=== PATIENT | male | born 1950 | race Caucasian/White ===

== ENCOUNTER → 2016-09-06 13:30 | Outpatient (CLI) | payer MEDICARE | END | disposition home or self-care (01) | LOC: D.MRI 13:30 | DX: M54.16 Radiculopathy, lumbar region (principal); M25.552 Pain in left hip ==

== ENCOUNTER 2017-02-20 10:30 | Inpatient (IN) | payer MEDICARE ==
[2017-02-20 11:24] LABS: HEMOGLOBIN 12.1 g/dL (13.5-17.5); MCH 30.1 pg (26.0-34.0); MCHC 34.6 g/dL (31.0-37.0); MCV 87.1 fL (80.0-100.0); MEAN PLATELET VOLUME 11.8 fL (7.4-10.4); PLATELET COUNT 301 10x3/uL (130-400); RBC 4.02 10x6/uL (4.20-6.10); WBC 23.5 10x3/uL (4.8-10.8)
[2017-02-20 11:40] LABS: ALBUMIN 3.3 g/dL (3.4-5.0); ANION GAP 20.6 mmol/L (8-16); BILIRUBIN - TOTAL 0.45 mg/dL (0.2-1.3); CALCIUM 9.2 mg/dL (8.5-10.1); CARBON DIOXIDE 17.5 mmol/L (21.0-32.0); POTASSIUM - SERUM 3.1 mmol/L (3.5-5.1); PROTEIN - SERUM 6.9 g/dL (6.4-8.2)
[2017-02-20 12:37] LABS: ANISOCYTOSIS OCC; LYMPHOCYTES 5 % (15-50); MONOCYTES 8 % (2-11); NEUTROPHILS 78 % (40-80); PLATELET ESTIMATE NORMAL
[2017-02-20 13:26] LABS: MAGNESIUM - SERUM 2.2 mg/dL (1.8-2.4)
[2017-02-20] MEDS ORDERED: PAXIL40 MG PO (17:19)
[2017-02-20] MEDS ORDERED: FLOMAX0.4 MG PO (17:20)
[2017-02-20] MEDS ORDERED: AVODART0.5 MG PO (17:20)
[2017-02-20] MEDS ORDERED: DIOVAN HCT 160/1 TA1 PO (17:21)
[2017-02-20] MEDS ORDERED: PRINIVIL10 MG PO (17:21)
[2017-02-20] MEDS ORDERED: MOBIC7.5 MG PO (17:21)
[2017-02-20] MEDS ORDERED: LIPITOR10 MG PO (17:22)
[2017-02-20 18:13] VITALS: BP 138/94; BMI 19.9
--- NOTE | 2017-02-20 18:39 | NUR ---
2500mL NS BOLUS COMPLETE PER CORE MEASURES. ADMISSION DATA OBTAIN FROM OLD RECORDS AND FROM LYDIA (PATIENT MOTHER). BED LOCKED AND LOW. CALL LIGHT IN REACH. TWO SIDERAILS UP. BED ALARM ON. RECIEVES LOVENOX INJ.
[2017-02-20 19:13] VITALS: BP 144/98
--- NOTE | 2017-02-20 20:00 | NUR ---
RECEIVED REPORT, WILL ASSUME CARE OF PT, PT SLEEPING, BED IS LOW, SRX2, CALL LIGHT IN REACH, WILL CONTINUE PLAN OF CARE
[2017-02-21] VITALS: BP 132/87
--- NOTE | 2017-02-21 04:03 | NUR ---
ASSESSMENT COMPLETE, SEE FLOWSHEET, PT SLEEPING, BED IS LOW, SRX2, CALL LIGHT IN REACH, WILL CONTINUE PLAN OF CARE
--- NOTE | 2017-02-21 04:26 | NUR ---
COFFEE WEIGHER AT BEDSIDE TO OBTAIN VITALS, CALL LIGHT IN REACH. WILL CONTINUE WITH PLAN OF CARE.
[2017-02-21 04:28] VITALS: BP 153/95
[2017-02-21 05:20] LABS: BASOPHILS 0 % (0-2); EOSINOPHILS 0 % (0-7); HEMATOCRIT 29.6 % (42.0-54.0); HEMOGLOBIN 10.2 g/dL (13.5-17.5); IMMATURE GRANULOCYTES 0.4 % (0-5); LYMPHOCYTES 4.2 % (15-50); MCHC 34.5 g/dL (31.0-37.0); MCV 87.1 fL (80.0-100.0); MEAN PLATELET VOLUME 11.8 fL (7.4-10.4); NEUTROPHILS 89.4 % (40-80); PLATELET COUNT 267 10x3/uL (130-400); RDW 14.8 % (11.5-14.5); WBC 24.3 10x3/uL (4.8-10.8)
[2017-02-21 05:32] LABS: BILIRUBIN - TOTAL 0.4 mg/dL (0.2-1.3); CALCIUM 8.8 mg/dL (8.5-10.1); CREATININE - SERUM 1.7 mg/dL (0.6-1.3); POTASSIUM - SERUM 3.1 mmol/L (3.5-5.1); PROTEIN - SERUM 6.1 g/dL (6.4-8.2)
[2017-02-21 05:35] LABS: ANION GAP 12.9 mmol/L (8-16); CARBON DIOXIDE 22.2 mmol/L (21.0-32.0)
[2017-02-21 07:58] VITALS: BP 160/94
[2017-02-21 09:41] VITALS: BMI 27.7
[2017-02-21 11:16] VITALS: BP 158/98
[2017-02-21 12:39] LABS: % SATURATION 4 % (15-55); IRON 14 ug/dl (35-150); TOTAL IRON BIND CAPACITY 283 ug/dl (260-445); UNSAT IRON BIND CAPACITY 269 ug/dl (150-375)
--- NOTE | 2017-02-21 14:52 | NUR ---
WOUND CARE CONSULT; NOTED BLANCHABLE REDNESS TO BOTTOM. PLAN: TURN/REPOSITION Q 2 HOURS CALMOSEPTINE CREAM TO PROTECT SKIN WOUND CARE WILL CONTINUE MONITORING.
[2017-02-21 15:41] VITALS: BP 173/101
--- NOTE | 2017-02-21 16:11 | NUR ---
ALERT AND ORIENTED X4. RESTING IN BED. 0 URINE OUT PUT. BLADDER SCAN SHOWS 647mL OF URINE. BP-171/101. REPORT BLOOD PRESSURE AND RETENTION TO . ELDRIDGE PLACEMENT ORDERED. SINUS TACH 117bpm ON TELEMETRY. BED LOCKED AND LOW. CALL LIGHT IN REACH. TWO SIDERAILS UP. BED ALARM ON.
--- NOTE | 2017-02-21 16:36 | NUR ---
ELDRIDGE PLACED 18FR. 9mL SALINE INFLATE BULB. URINE CLEAR YELLOW. UA COLLECTED AND TAKEN TO LAB. UNABLE TO COLLECT STOOL. NO BOWEL MOVEMENT. LABEL PLACED ON ELDRIDGE BAG AND ON CHART. CONTINUE PLAN OF CARE AND SAFETY PRECAUTIONS.
[2017-02-21 17:48] LABS: APPEARANCE CLEAR (CLEAR); BILIRUBIN NEGATIVE (NEGATIVE); COLOR YELLOW (YELLOW); GLUCOSE NEGATIVE (NEGATIVE); KETONE NEGATIVE (NEGATIVE); NITRITE NEGATIVE (NEGATIVE); PROTEIN TRACE mg/dL (NEGATIVE); UROBILINOGEN NORMAL (NORMAL)
--- NOTE | 2017-02-21 18:03 | NUR ---
TAKEN TO MRI VIA STRETCHER. CONTINUE PLAN OF CARE AND SAFETY PRECAUTIONS.
[2017-02-21 19:00] VITALS: BP 159/96
--- NOTE | 2017-02-21 19:20 | NUR ---
RECEIVED REPORT, WILL ASSUME CARE OF PT, PT DENIES ANY NEEDS, SCD ARE ON, BED IS LOW, SRX2, CALL LIGHT IN REACH, WILL CONTINUE PLAN OF CARE
--- NOTE | 2017-02-21 19:40 | NUR ---
MIRROR DEPARTMENT SUPERVISOR NOTIFIED BP 159/96, WILL MONITOR AND FOLLOW ORDER
--- NOTE | 2017-02-21 21:53 | NUR ---
COVERSTITCH BINDER RECHECK BP-159/91, WILL CONTINUE TO MONITOR
[2017-02-22] VITALS: BP 143/95
--- NOTE | 2017-02-22 01:27 | NUR ---
PT LYING IN BED, AWAKE, ALERT, I ASKED HOW PT HE WAS DOING AND IF HE NEEDED ANYTHING. PT DENIED ANY NEEDS AND STATED HE WAS OK. CONTINUE TO MONITOR. BED LOW, CALL LIGHT IN REACH, SIDE RAILS X 2, HOB 20 DEGREES.
--- NOTE | 2017-02-22 02:44 | NUR ---
ASSESSMENT COMPLETE, SEE FLOWSHEET, PT LAYING ON L.SIDE, TRIED TO TURN HIM, HE REFUSED AT THIS TIME, BED IS LOW, SRX2, CALL LIGHT IN REACH, SCD ARE ON, WILL CONTINUE PLAN OF CARE
[2017-02-22 04:00] VITALS: BP 179/91
[2017-02-22 05:41] LABS: BASOPHILS 0 % (0-2); EOSINOPHILS 0.1 % (0-7); HEMATOCRIT 25.5 % (42.0-54.0); HEMOGLOBIN 8.6 g/dL (13.5-17.5); IMMATURE GRANULOCYTES 0.4 % (0-5); MCHC 33.7 g/dL (31.0-37.0); MCV 88.9 fL (80.0-100.0); MEAN PLATELET VOLUME 11.4 fL (7.4-10.4); MONOCYTES 6.3 % (2-11); NEUTROPHILS 88.2 % (40-80); RBC 2.87 10x6/uL (4.20-6.10); RDW 15.2 % (11.5-14.5)
[2017-02-22 05:49] LABS: PLATELET COUNT 191 10x3/uL (130-400); WBC 14.7 10x3/uL (4.8-10.8)
[2017-02-22 06:38] LABS: ALBUMIN 2.5 g/dL (3.4-5.0); ANION GAP 17.4 mmol/L (8-16); BILIRUBIN - TOTAL 0.27 mg/dL (0.2-1.3); CALCIUM 8.5 mg/dL (8.5-10.1); CARBON DIOXIDE 18.9 mmol/L (21.0-32.0); CREATININE - SERUM 1.3 mg/dL (0.6-1.3); POTASSIUM - SERUM 3.3 mmol/L (3.5-5.1); PROTEIN - SERUM 5.8 g/dL (6.4-8.2)
[2017-02-22 07:51] VITALS: BP 187/94
[2017-02-22 15:32] VITALS: BP 186/104
--- NOTE | 2017-02-22 16:29 | NUR ---
Rehab Prescreening Consult recieved and the chart has been reviewed. Based on notes it is difficult to tell what the patient's prior level of function and cognition was prior to admit. Rehab will visit with the patient and or family to determine this, in order to know whether he meets criteria for the IRF. Thank you for the referral. Nighat Valverde RN Clinical Liaison, Rehab
--- NOTE | 2017-02-22 16:56 | NUR ---
Patient Name: ELIZABETH HOLLY Admission Status: ER Accout number: [id number] Admission Date: 02-20-2017 : 1950 Admission Diagnosis:WEAKNESS Attending: AARON MOSCOSO Current LOS: 2 Anticipated DC Date: 02-23-2017 Planned Disposition: Inpatient Rehab Primary Insurance: MEDICARE A & B PLANNED EXTERNAL PROVIDER: [facility] INPATIENT [facility]AB Discharge Planning Comments: * Is the patient Alert and Oriented? Yes 0 * How many steps to enter\exit or inside your home? 4 0 * PCP DR. TURNER 0 * [facility] [address] [facility] * Preadmission Environment Home with Family 0 * ADLs Independent 0 * Equipment None 0 * Other Equipment NO MEDICAL EQUIPMENT PROVIDER PREFERNCE 0 * List name and contact numbers for known caregivers / representatives who currently or will assist patient after discharge: LYDIA HOLLY, MOTHER, 0 * Community resources currently utilized None 0 * Please name any agencies selected above. NONE 0 * Additional services required to return to the preadmission environment? Yes * Can the patient safely return to the preadmission environment? Yes 0 * Has this patient been hospitalized within the prior 30 days at any hospital? No 0 CM RECEIVED INPATIENT REHAB PRESCREENING ORDER, MET WITH PT IN ROOM TO DISCUSS DISCHARGE PLANNING AND NEEDS. PT REPORTS LIVING AT HOME INDEPENDENTLY WITH HIS MOTHER. PT HAS NO MEDICAL EQUIPMENT AND NO OUTSIDE SERVICES ASSISTING IN THE HOME. CM DISCUSSED AVAILABILITY OF HOME HEALTH, REHAB SERVICES AND MEDICAL EQUIPMENT WELL REHAB PROVIDERS AND LOCATIONS. PT WOULD LIKE TO GO TO REHAB AT [place] IF ACCEPTED. CM WAITING INPATIENT REHAB PRESCREENING RESULT / DETERMINATION FROM [facility] INPATIENT [facility]. Structural Architect: Francisco Avendaño
--- NOTE | 2017-02-22 17:43 | NUR ---
RESTING IN BED. ALERT AND ORIENTED TO PERSON AND PLACE. WATCHING PEOPLE PASS BY ROOM. SINUS TACH 120bpm ON TELEMETRY. ATE 75% OF DINER. ELDRIDGE DRAINING BY GRAVITY SECURED TO RIGHT INNER THIGH. BED GERARDO AND LOW. CALL LIGHT IN REACH. TWO SIDERAILS UP. BED ALARM ON.
--- NOTE | 2017-02-22 19:21 | NUR ---
PT IS SITTING UP IN BED AT A 45 DEGREE ANGLE, BED IN LOW POSITION, CALL LIGHT IN REACH, NO SIGNS OF DISTRESS. CONTINE WITH CARE PLAN
[2017-02-22 20:00] VITALS: BP 144/93
--- NOTE | 2017-02-23 02:07 | NUR ---
CALL LIGHT IN REACH, WILL CONTINUE WITH PLAN OF CARE.
[2017-02-23 04:00] VITALS: BP 151/103
--- NOTE | 2017-02-23 04:14 | NUR ---
PT LYING ON BACK, EVEN RISE AND FALL OF CHEST, NO SIGNS OF DISTRESS. BED IN LOW POSITION, CALL LIGHT IN REACH
[2017-02-23 04:24] LABS: BASOPHILS 0.1 % (0-2); EOSINOPHILS 0.2 % (0-7); HEMATOCRIT 24.9 % (42.0-54.0); HEMOGLOBIN 8.4 g/dL (13.5-17.5); IMMATURE GRANULOCYTES 0.7 % (0-5); MCH 30.1 pg (26.0-34.0); MCHC 33.7 g/dL (31.0-37.0); MCV 89.2 fL (80.0-100.0); MEAN PLATELET VOLUME 11.1 fL (7.4-10.4); MONOCYTES 6.3 % (2-11); NEUTROPHILS 87.7 % (40-80); PLATELET COUNT 199 10x3/uL (130-400); RBC 2.79 10x6/uL (4.20-6.10); RDW 15.4 % (11.5-14.5); WBC 12.3 10x3/uL (4.8-10.8)
[2017-02-23 04:48] LABS: ALBUMIN 2.6 g/dL (3.4-5.0); ALKALINE PHOSPHATASE 66 U/L (46-116); ALT (SGPT) 13 U/L (10-68); CALC OSMOLALITY 295 mosm/kg (275-300); CALCIUM 8.5 mg/dL (8.5-10.1); CARBON DIOXIDE 19.8 mmol/L (21.0-32.0); CHLORIDE - SERUM 113 mmol/L (98-107); GLUCOSE 140 mg/dL (74-106); POTASSIUM - SERUM 3.2 mmol/L (3.5-5.1); PROTEIN - SERUM 6.1 g/dL (6.4-8.2); SODIUM 145 mmol/L (136-145); eGFR NON AFRICAN AMERICAN 80 mL/min (90-120)
[2017-02-23 04:50] LABS: UREA NITROGEN 26 mg/dL (7-18)
--- NOTE | 2017-02-23 05:10 | NUR ---
PT K+ 3.2 STARTED ON POTASSIUM RIDER, 1ST BAG HUNG AND INFUSING
--- NOTE | 2017-02-23 07:15 | NUR ---
RECIEVED REPORT ON PATIENT, PATIENT IS ALERT AT THIS TIME. PATIENT IS ST ON MONITOR WITH A RATE OF 114. PATIENT ON 2L/MIN VIA NC OF OXYGEN WITH NAD NOTED AT THIS TIME. PATIENT HAS A L AC IV WITH NS INFUSING AT 100ML/HR. PATIENT DENIES ANY NEEDS AT THIS TIME. BED IS LOW AND LOCKED AT THIS TIME. CPOC
[2017-02-23 08:00] VITALS: BP 187/113
[2017-02-23 09:16] LABS: FOLATE (FOLIC ACID) - SERUM 4.7 ng/mL (>3.0)
--- NOTE | 2017-02-23 09:30 | NUR ---
PATIENT WORKING WITH PT, DENIES ANY NEEDS. CPOC
--- NOTE | 2017-02-23 10:17 | NUR ---
PATIENT RESTING, AROUSES TO VOICE, DENIES ANY NEEDS. CPOC
[2017-02-23 12:00] VITALS: BP 203/121
--- NOTE | 2017-02-23 12:30 | NUR ---
SHIPPING INSPECTOR AT BEDSIDE FEEDING PATIENT LUNCH. PATIENT DENIES ANY NEEDS. CPOC
--- NOTE | 2017-02-23 13:01 | NUR ---
Nutrition Follow Up: Pt was asleep at the time of RD visit. Interview deferred. Pt is eating 54% meal avg on an AHA diet. Noted per chart pt requires assistance with meals. No BM since admit. Wt gain noted. Meds and labs reviewed. Rec continue current diet. RD following.
--- NOTE | 2017-02-23 14:00 | NUR ---
PT PUT PATIENT IN CHAIR, PATIENT TOLERATING AT THIS TIME. CPOC
--- NOTE | 2017-02-23 14:05 | NUR ---
REHAB PRESCREENING Rehab continues to follow Mr. Groves. He is currently only doing sit to stand with physical therapy. His vital signs are also noted to have BP documented at 187/113 at 08:00 and 203/121 at 12:00. Case Nahum Avendaño was notified of these concerns. Rehab will continue to follow for progress and stable vitals. Thank you for this referral! Rula Moore, SPOT WELDER BODY ASSEMBLY Rehab Play Reader
--- NOTE | 2017-02-23 15:07 | NUR ---
PATIENT K CAME BACK AT 3.4. ELECTROLYTE PROTOCOL FOLLOWED. CPOC
--- NOTE | 2017-02-23 15:37 | NUR ---
PATIENT BP 184/101, SPOKE WITH DR MOSCOSO AND SHE ORDERED TO CHANGE HYDRALIZINE TO Q4HPRN. WILL GIVE. CPOC
[2017-02-23 16:00] VITALS: BP 184/101
--- NOTE | 2017-02-23 17:45 | NUR ---
PATIENT EATING DINNER, DENIES ANY NEEDS OR PAIN. BED IS LOW AND LOCKED. CALL LIGHT IN REACH. CPOC
--- NOTE | 2017-02-23 17:56 | NUR ---
PATIENT HAS NOT HAD A STOOL TODAY, NO STOOL COLLECTED, STILL NEEDS SAMPLE. WILL PASS ON IN REPORT. CPOC
[2017-02-23 19:00] VITALS: BP 199/106
--- NOTE | 2017-02-24 01:11 | NUR ---
PT SITTING UP WITH HOB AT 45 DEGREE ANGLE. PT IS RESTING. EVEN AND UNLABORED RESPIRATIONS NOTED.
--- NOTE | 2017-02-24 03:40 | NUR ---
CALL LIGHT IN REACH, WILL CONTINUE WITH PLAN OF CARE.
[2017-02-24 04:00] VITALS: BP 194/114
[2017-02-24 05:46] LABS: BASOPHILS 0.1 % (0-2); EOSINOPHILS 0.4 % (0-7); HEMATOCRIT 25.5 % (42.0-54.0); HEMOGLOBIN 8.5 g/dL (13.5-17.5); IMMATURE GRANULOCYTES 2.5 % (0-5); LYMPHOCYTES 6.6 % (15-50); MCH 29.7 pg (26.0-34.0); MCHC 33.3 g/dL (31.0-37.0); MCV 89.2 fL (80.0-100.0); MEAN PLATELET VOLUME 11.6 fL (7.4-10.4); MONOCYTES 6.5 % (2-11); NEUTROPHILS 83.9 % (40-80); PLATELET COUNT 220 10x3/uL (130-400); RBC 2.86 10x6/uL (4.20-6.10); RDW 15.4 % (11.5-14.5); WBC 13.5 10x3/uL (4.8-10.8)
[2017-02-24 06:20] LABS: ALBUMIN 2.8 g/dL (3.4-5.0); ALKALINE PHOSPHATASE 71 U/L (46-116); CALC OSMOLALITY 290 mosm/kg (275-300); CALCIUM 8.6 mg/dL (8.5-10.1); CARBON DIOXIDE 20.8 mmol/L (21.0-32.0); CHLORIDE - SERUM 113 mmol/L (98-107); GLUCOSE 129 mg/dL (74-106); POTASSIUM - SERUM 3.2 mmol/L (3.5-5.1); SODIUM 143 mmol/L (136-145); UREA NITROGEN 23 mg/dL (7-18); eGFR NON AFRICAN AMERICAN 80 mL/min (90-120)
[2017-02-24 06:21] LABS: ALT (SGPT) 17 U/L (10-68)
--- NOTE | 2017-02-24 07:27 | NUR ---
RECIEVED REPORT ON PATIENT, PATIENT IS ALERT AT THIS TIME. PATIENT IS A MOUTH BREATHER, NAD NOTED AT THIS TIME. PATIENT IS ST ON MONITOR WITH A RATE OF 119. PATIENT HAS A L AC IV WITH NS INFUSING AT 100ML/HR. ELDRIDGE CATHETER INTACT, DRAINING BY GRAVITY. PATIENT DENIES ANY NEEDS. WILL CONT TO MONITOR PATIENT. BED LOW AND LOCKED. CALL LIGHT IN REACH. CPOC
[2017-02-24 08:00] VITALS: BP 193/113
--- NOTE | 2017-02-24 08:45 | NUR ---
MORNING MEDS GIVEN, ASSESSMENT DONE. PATIENT DENIES ANY NEEDS OR PAIN. ST ON MONITOR RATE OF 199. WILL CONT TO MONITOR. CPOC
--- NOTE | 2017-02-24 10:45 | NUR ---
PATIENT IN CHAIR PER PT. PATIENT TOLERATING. DENIES ANY NEEDS OR PAIN. CPOC
[2017-02-24 11:20] LABS: CALC OSMOLALITY 293 mosm/kg (275-300); CALCIUM 9.2 mg/dL (8.5-10.1); CARBON DIOXIDE 18.9 mmol/L (21.0-32.0); CHLORIDE - SERUM 113 mmol/L (98-107); GLUCOSE 157 mg/dL (74-106); SODIUM 144 mmol/L (136-145); UREA NITROGEN 24 mg/dL (7-18); eGFR NON AFRICAN AMERICAN 80 mL/min (90-120)
[2017-02-24 11:24] LABS: POTASSIUM - SERUM 3.7 mmol/L (3.5-5.1)
[2017-02-24 12:00] VITALS: BP 165/91
--- NOTE | 2017-02-24 13:00 | NUR ---
PATIENT REQUESTING TO GET BACK IN BED, PAGED PT. CPOC
--- NOTE | 2017-02-24 13:09 | EC ---
PATIENT:ELIZABETH HOLLY DATE OF SERVICE: 02/20/17 SEX: M MEDICAL RECORD: [id number] DATE OF : [birth year] LOCATION:D.M2 D.210 AGE OF PATIENT: 67 ADMISSION DATE: 02/20/17 REFERRING PHYSICIAN: INTERPRETING PHYSICIAN: PASCUAL COONEY MD ECHOCARDIOGRAM REPORT ECHO CHARGES 5 ECHO LIMITED CLINICAL DIAGNOSIS: L MCA LACUNE ASSESS FOR CLOTS ECHOCARDIOGRAPHIC MEASUREMENTS (adult normal given) AC root (d.<3.7cm) cm LV Septum d (<1.2 cm> cm Valve Excursion cm LV Septum (systole) cm Left Atria (s.<4.0cm> 3.4 cm LVPW d(<1.2cm) cm RV (d.<2.3cm) 2.9 cm LVPW (sytole) cm LV diastole(<5.6CM) 3.6 cm MV E-F(>70mm/sec) cm LV systole 2.2 cm LVOT Diameter 1.7 cm MV exc.(>10mm) cm Est.ejection fraction (50-75%) % Pericardial Effusion N DOPPLER: LVIT cm/sec A 140 cm/sec E 108 cm/sec LA cm/sec RVSP 29 mmHg LVOT 134 cm/sec AOP1/2T m/s Asc. Ao 172 cm/sec RVOT cm/sec RA cm/sec PA cm/sec AV Gradient Peak 11.89mmHg AV Mean 6.03 mmHg AV Area 1.8 cm MV Gradient Peak 7.45 mmHg MV Mean 3.50 mmHg MV Area cm COMMENTS: Business Center Manager: Raciel JALLOH Companion Caregiver: 2 Dr. Correa TAPE# PACS DATE OF SERVICE: 02/23/2017 FINDINGS: 1. Left ventricle chamber size is within normal limits. Left ventricular systolic function is normal. Overall ejection fraction estimated at 55%. 2. Left atrium, right atrium, and right ventricular chamber sizes are within normal limits. 3. Valvular structures have normal structure and motion. 4. Doppler interrogation only reveals mild tricuspid regurgitation. No other valvular insufficiency or stenosis. ECHOCARDIOGRAM REPORT [id number] ELIZABETH HOLLY 5. No evidence of pericardial effusion or left ventricular thrombus. TRANSINT:[id number] Voice Confirmation ID: [id number] DOCUMENT ID: [id number] PASCUAL COONEY MD at 1309 CC: [id number] DICTATION DATE: 02/23/17 1158 METALLURGICAL SPECIALIST: 02/23/17 1256 ADM IN [facility] [address] [id number]
--- NOTE | 2017-02-24 13:10 | NUR ---
PATIENT BACK IN BED PER PT. DENIES ANY NEEDS. CPOC
--- NOTE | 2017-02-24 14:33 | NUR ---
Rehab Note- Spoke with Ms Groves, the patient's mother, that he lives and discussed his PLOF and current status and she is interested in him coming to [facility] Acute Rehab when medically stable. Will follow at this time as the patient continues to be hypertensive. Thank you for this referral! Fanny Wang RN Clinical Liaison, [facility] Rehab
[2017-02-24 15:39] VITALS: BP 173/103
[2017-02-24 15:56] VITALS: BP 178/98
--- NOTE | 2017-02-24 15:59 | NUR ---
HYDRALZINE 10MG GIVEN IV FOR BP 178/98. WILL CONT TO MONITOR. CPOC
--- NOTE | 2017-02-24 17:00 | NUR ---
WHEN PATIENT WAS EATING DINNER, PATIENT HAD A COUGHING EPISODE WHEN SWALLOWING, VS STABLE O2 SAT 96%. PATIENT STATED IT WAS HARD TO SWALLOW. WILL ORDER A SWALLOW EVAL. CPOC
--- NOTE | 2017-02-24 18:31 | NUR ---
PATIENT RESTING, AROUSES TO VOICE. PATIENT DENIES ANY PAIN OR NEEDS. CPOC
[2017-02-24 19:00] VITALS: BP 156/92
--- NOTE | 2017-02-24 19:33 | NUR ---
PT IN BED WATCHING TELEVISION. DENIES NEEDS AT THIS TIME.
[2017-02-25] VITALS: BP 154/106
--- NOTE | 2017-02-25 01:46 | NUR ---
PT IN BED. WILL CONTINUE WITH CARE PLAN. BED IN LOW POSITION. CALL LIGHT WITHIN REACH. DENIES ANY NEEDS AT THIS TIME.
[2017-02-25 04:00] VITALS: BP 153/102
[2017-02-25 05:26] LABS: BASOPHILS 0.2 % (0-2); EOSINOPHILS 0.4 % (0-7); HEMATOCRIT 27.9 % (42.0-54.0); HEMOGLOBIN 9.3 g/dL (13.5-17.5); IMMATURE GRANULOCYTES 3.4 % (0-5); LYMPHOCYTES 6.8 % (15-50); MCH 29.7 pg (26.0-34.0); MCHC 33.3 g/dL (31.0-37.0); MCV 89.1 fL (80.0-100.0); MEAN PLATELET VOLUME 10.9 fL (7.4-10.4); MONOCYTES 7.7 % (2-11); NEUTROPHILS 81.5 % (40-80); PLATELET COUNT 243 10x3/uL (130-400); RBC 3.13 10x6/uL (4.20-6.10); RDW 15.6 % (11.5-14.5); WBC 16.4 10x3/uL (4.8-10.8)
[2017-02-25 05:41] LABS: ALBUMIN 2.6 g/dL (3.4-5.0); ANION GAP 14.5 mmol/L (8-16); BILIRUBIN - TOTAL 0.88 mg/dL (0.2-1.3); CALCIUM 8.7 mg/dL (8.5-10.1); CARBON DIOXIDE 23.4 mmol/L (21.0-32.0); CREATININE - SERUM 1.1 mg/dL (0.6-1.3); PROTEIN - SERUM 6.4 g/dL (6.4-8.2)
[2017-02-25 05:45] LABS: POTASSIUM - SERUM 2.9 mmol/L (3.5-5.1)
--- NOTE | 2017-02-25 07:15 | NUR ---
RECIEVED REPORT ON PATIENT, PATIENT IS RESTING WITH EYES CLOSED AT THIS TIME. PATIENT HAS A L AC IV WITH NS INFUSING AT 5ML/HR. NAD NOTED AT THIS TIME. BED IS LOW AND LOCKED AT THIS TIME. CALL LIGHT IN REACH. CPOC
[2017-02-25 08:00] VITALS: BP 145/48
--- NOTE | 2017-02-25 08:30 | NUR ---
PATIENT TO CHAIR PER PT. PATIENT TOLERATING. PATIENT DENIES ANY NEEDS. CPOC
--- NOTE | 2017-02-25 09:15 | NUR ---
MORNING MEDICATION GIVEN, NO ISSUES. ASSESSMENT DONE. DENIES FURTHER NEEDS. CPOC
[2017-02-25 12:00] VITALS: BP 123/72
--- NOTE | 2017-02-25 13:05 | NUR ---
PT PUTTING PATIENT BACK TO BED. CPOC
[2017-02-25 14:33] LABS: ANION GAP 13.7 mmol/L (8-16); CALCIUM 9.2 mg/dL (8.5-10.1); CARBON DIOXIDE 21.8 mmol/L (21.0-32.0)
[2017-02-25 14:35] LABS: CREATININE - SERUM 1.4 mg/dL (0.6-1.3); POTASSIUM - SERUM 3.5 mmol/L (3.5-5.1)
--- NOTE | 2017-02-25 15:13 | NUR ---
PATIENT K 3.5 ELCTROLYTE PROTOCOL FOLLOWED. CPOC
[2017-02-25 16:39] VITALS: BP 136/90
[2017-02-25 19:19] LABS: ANION GAP 14.6 mmol/L (8-16); CALCIUM 9.3 mg/dL (8.5-10.1); CREATININE - SERUM 1.3 mg/dL (0.6-1.3); POTASSIUM - SERUM 3.6 mmol/L (3.5-5.1)
[2017-02-25 20:00] VITALS: BP 154/86
--- NOTE | 2017-02-25 23:58 | NUR ---
PT RESTING WELL WITHOUT C/O OR DISTRESS NOTED. FEW NEEDS VOICED. CALL LIGHT WITHIN REACH.
[2017-02-26 05:11] LABS: ANION GAP 14.9 mmol/L (8-16); CARBON DIOXIDE 23.8 mmol/L (21.0-32.0); CREATININE - SERUM 1.1 mg/dL (0.6-1.3); POTASSIUM - SERUM 3.7 mmol/L (3.5-5.1)
[2017-02-26 05:13] LABS: BASOPHILS 0.1 % (0-2); EOSINOPHILS 0.7 % (0-7); HEMATOCRIT 28.5 % (42.0-54.0); HEMOGLOBIN 9.1 g/dL (13.5-17.5); IMMATURE GRANULOCYTES 2.9 % (0-5); LYMPHOCYTES 5.9 % (15-50); MCH 29.4 pg (26.0-34.0); MCHC 31.9 g/dL (31.0-37.0); MEAN PLATELET VOLUME 11.3 fL (7.4-10.4); MONOCYTES 7.4 % (2-11); PLATELET COUNT 250 10x3/uL (130-400); RBC 3.09 10x6/uL (4.20-6.10); RDW 16.4 % (11.5-14.5); WBC 16.5 10x3/uL (4.8-10.8)
[2017-02-26 05:15] LABS: MCV 92.2 fL (80.0-100.0)
--- NOTE | 2017-02-26 08:15 | NUR ---
PT UP IN BEDSIDE CHAIR WITH ASSIST FROM PHYSICAL THERAPY PT EATING BREAKFAST VOICES NO COMPLAINTS CALL LIGHT IN REACH WILL MONITER
[2017-02-26 09:09] VITALS: BP 156/96
--- NOTE | 2017-02-26 10:00 | NUR ---
PT ASSISTED BACK TO BED PER PHYSICAL THERAPY CALL LIGHT IN REACH WILL MONITER
[2017-02-26 12:42] VITALS: BP 155/99
--- NOTE | 2017-02-26 14:41 | NUR ---
PT IS AWAKE AND IN BED AT THIS TIME. BED AT LOWEST POSITION. CALL MCCONNELL IN USE. SIDE RAILS UP X2. NO NEEDS AT THIS TIME. WILL CONTINUE TO MONITOR
--- NOTE | 2017-02-26 14:55 | NUR ---
PT HAD LARGE FORMED INCONTINENT BM PT CLEANED AND DRYED AND SPECIMEN COLLECTED SHARON CRUZN SAID TO NOT GIVE THE DULCULOX SUPPOSITORY THAT WAS ORDERED WILL MONITER CALL LIGHT IN REACH
[2017-02-26 16:39] VITALS: BP 140/84
--- NOTE | 2017-02-26 17:00 | NUR ---
PT ASSISTED WITH EATING TOLERATED WELL ATE 25 PERCENT
[2017-02-26 19:00] VITALS: BP 155/80
--- NOTE | 2017-02-26 19:38 | NUR ---
PT RESTING IN BED. ASKS TO BE PUT ON BSC. X2 ASSIST. PT FLACCID ON RIGHT SIDE, PT HAS NS IFUSING TO THE LEFT AC @ 5. PT WILL CALL WHEN FINISHED. PT HAS NO S/S OF DISTRESS. WILL CPOC
--- NOTE | 2017-02-26 21:51 | NUR ---
PT A MOUTH BREATHER. PT GOT UPSET WHEN I ASKED HIS NAME AND . PT RESTING IN BED. RESPIRTATIONS EVEN AND UNLABORED. WILL CPOC
[2017-02-27] VITALS: BP 169/91; BP 181/105
--- NOTE | 2017-02-27 02:43 | NUR ---
PT ASLEEP. RESPIRTAIONS EVEN AND UNLABORED. PT SLEEPING WITH MOUTH OPEN. PT HAS NO S/S OF DISTRESS. BED LOW AND CALL LIGHT IN REACH. WILL CPOC
--- NOTE | 2017-02-27 04:16 | NUR ---
REPOSITIONED PT. PT RESTING, DENIES ANY NEEDS. NO S/S OF DISTRESS.WILL CPOC
[2017-02-27 04:37] LABS: BASOPHILS 0.2 % (0-2); EOSINOPHILS 1.5 % (0-7); HEMATOCRIT 30.2 % (42.0-54.0); HEMOGLOBIN 9.7 g/dL (13.5-17.5); IMMATURE GRANULOCYTES 3.2 % (0-5); LYMPHOCYTES 6.6 % (15-50); MCH 29.6 pg (26.0-34.0); MCHC 32.1 g/dL (31.0-37.0); MCV 92.1 fL (80.0-100.0); MEAN PLATELET VOLUME 10.8 fL (7.4-10.4); MONOCYTES 9.5 % (2-11); PLATELET COUNT 263 10x3/uL (130-400); RBC 3.28 10x6/uL (4.20-6.10); RDW 16.8 % (11.5-14.5); WBC 16.9 10x3/uL (4.8-10.8)
[2017-02-27 04:52] LABS: ANION GAP 12.6 mmol/L (8-16); CARBON DIOXIDE 26.5 mmol/L (21.0-32.0); CREATININE - SERUM 1.1 mg/dL (0.6-1.3)
[2017-02-27 04:54] LABS: POTASSIUM - SERUM 3.1 mmol/L (3.5-5.1)
--- NOTE | 2017-02-27 07:20 | NUR ---
REPORT RECEIVED. PT RESTING QUIELTY, ORIENTED TO PERSON ONLY. RR EVEN AND UNLABORED. PT IS MOUTH BREATHING. PT DENIES FURTHER NEEDS AT THIS TIME, WILL CTM.
[2017-02-27 08:00] VITALS: BP 153/102
--- NOTE | 2017-02-27 09:40 | NUR ---
FAMILY MEMBER CALLED REGARDING PT CONDITION. GAVE UPDATE TO FAMILY MEMBER AND SHE GAVE SUGGESTIONS REGARDING PT NOT EATING VERY MUCH. SAID THAT "HE LIKES BANANAS." PUT IN A DIET MESSAGE REGARDING REQUESTS. SPOKE TO FAMILY MEMBER FOR ABOUT 10 MINUTES.
[2017-02-27 12:00] VITALS: BP 104/74; BP 130/74
--- NOTE | 2017-02-27 13:26 | NUR ---
Nutrition Follow Up: Pt was asleep at the time of RD visit. Interview deferred. Pt is eating 29% meal avg on an AHA diet. Wt loss noted. +BM 02/27/17. Labs reviewed. Meds noted including Lasix. Rec changing diet to regular to encourage po intake. Rec consider an appetite stimulant. Will send Ensure with meals. RD following.
[2017-02-27 16:00] VITALS: BP 130/74
--- NOTE | 2017-02-27 18:23 | NUR ---
PT RESTING QUIETLY, RR EVEN AND UNLABORED. ASSISTED PT TO BEDPAN X2 ASSIST. PT WILL CALL WHEN READY TO GET OFF BED SALCIDO. WILL GIVE REPORT ON PT CONDITION FOR THE DAY.
--- NOTE | 2017-02-27 18:35 | NUR ---
ASSISTED PT OFF BED PAIN, SMALL AMT STOOL PASSED. PROVIDED ELDRIDGE CARE AND BETHANIE CARE, BETHANIE PAD CHANGED. WILL GIVE REPORT ON PT CONDITION FOR THE DAY.
--- NOTE | 2017-02-27 19:45 | NUR ---
PT IN BED RESTING QUIETLY. DENIES ANY PAIN OR NEEDS AT THIS TIME. BED IN LOW POSITION, CALL LIGHT WITHIN REACH.
[2017-02-27 20:45] VITALS: BP 131/76
[2017-02-28 00:37] VITALS: BP 138/81
[2017-02-28 04:25] LABS: BASOPHILS 0.3 % (0-2); EOSINOPHILS 1.6 % (0-7); HEMATOCRIT 31.4 % (42.0-54.0); HEMOGLOBIN 10.1 g/dL (13.5-17.5); IMMATURE GRANULOCYTES 4.3 % (0-5); LYMPHOCYTES 10.9 % (15-50); MCH 29.8 pg (26.0-34.0); MCHC 32.2 g/dL (31.0-37.0); MCV 92.6 fL (80.0-100.0); MEAN PLATELET VOLUME 11.2 fL (7.4-10.4); MONOCYTES 7.6 % (2-11); NEUTROPHILS 75.3 % (40-80); PLATELET COUNT 283 10x3/uL (130-400); RBC 3.39 10x6/uL (4.20-6.10); RDW 16.9 % (11.5-14.5)
[2017-02-28 04:38] VITALS: BP 135/75
[2017-02-28 04:45] LABS: ANION GAP 13.1 mmol/L (8-16); CALCIUM 9.1 mg/dL (8.5-10.1); CARBON DIOXIDE 27.1 mmol/L (21.0-32.0); CREATININE - SERUM 1.2 mg/dL (0.6-1.3); MAGNESIUM - SERUM 2.5 mg/dL (1.8-2.4); PHOSPHOROUS 4.1 mg/dL (2.5-4.9); POTASSIUM - SERUM 3.2 mmol/L (3.5-5.1)
--- NOTE | 2017-02-28 05:24 | NUR ---
PT POTASSIUM 3.2. FOLLOWED ELECTROLYTE PROTOCOL AND GAVE 40 mEQ OF PO POTASSIUM. DENIES ANY OTHER NEEDS AT THIS TIME. BED IN LOW POSITION, CALL LIGHT WITHIN REACH.
--- NOTE | 2017-02-28 07:00 | NUR ---
REPORT RECEIVED FROM OFF GOING NURSE. SEE ASSESSMENT FLOW SHEET FOR MORE DETAILS. PT SLOW TO RESPOND TO QUESTIONS AND TO COMMUNICATE. ALLOWED EXTRA TIME FOR PT TO CONCERN NEEDS AND THOUGHTS. IV TO LEFT AC PATENT. C/D/I. NO REDDNESS/EDEMA OR C/O PAIN. FC PATENT WITH CLEAR YELLOW URINE NOTED. BREATHING NORMAL AND UNLABORED. CALL LIGHT IN REACH. WILL CONT POC
[2017-02-28 07:38] VITALS: BP 142/88
--- NOTE | 2017-02-28 10:00 | NUR ---
PHYSICAL THERAPY ASSISTED PT TO BEDSIDE CHAIR. SITTING UPRIGHT WATCHING TV. 0 S/SX OF DISTRESS/DISCOMFORT NOTED. CALL LIGHT IN REACH. WILL CONT POC
[2017-02-28 11:47] VITALS: BP 106/59
--- NOTE | 2017-02-28 14:26 | NUR ---
UA COLLECTED AND FC REMOVED PER ORDRES.
[2017-02-28 14:46] LABS: APPEARANCE CLEAR (CLEAR); COLOR YELLOW (YELLOW); SPECIFIC GRAVITY 1.015 (1.005-1.020)
[2017-02-28 14:47] LABS: BILIRUBIN NEGATIVE (NEGATIVE); GLUCOSE NEGATIVE (NEGATIVE); KETONE NEGATIVE (NEGATIVE); NITRITE NEGATIVE (NEGATIVE); PROTEIN NEGATIVE (NEGATIVE); UROBILINOGEN NORMAL (NORMAL)
[2017-02-28 14:48] LABS: BACTERIA MODERATE /hpf (NONE SEEN)
[2017-02-28] MEDS ORDERED: IPRAT-ALBUT 0.5-3 ML INH (15:08)
[2017-02-28] MEDS ORDERED: NORVASC5 MG PO (15:08)
[2017-02-28] MEDS ORDERED: PEPCID20 MG PO (15:09)
[2017-02-28] MEDS ORDERED: HCTZ25 MG PO (15:09)
[2017-02-28] MEDS ORDERED: CEFTRIAXONE1 G/VIAL IM (15:16)
[2017-02-28] MEDS ORDERED: LEVAQUIN500 MG PO (15:16)
--- NOTE | 2017-02-28 15:46 | NUR ---
Patient Name: ELIZABETH HOLLY Encounter No: [id number] : 1950 Primary Insurance: MEDICARE A & B Anticipated DC Date: 02-23-2017 Planned Disposition: Inpatient Rehab External Planned Provider: [facility] INPATIENT REHAB DCP follow-up note: CM SPOKE TO ELISE OF INPATIENT REHAB, THEY PLAN TO ACCEPT PT TODAY, FOR REHAB. PT NOTIFIED, IN AGREEMENT WITH DISCHARGE TO INPATIENT REHAB. IMPORTANT MESSAGE FROM MEDICARE PROVIDED AND EXPLAINED. CM CALLED AND SPOKE TO PT'S MOTHER AT HOME WHO IS IN AGREEMENT AND ASKED FOR PRIVATE ROOM AND FOR REHAB TO CALL HER TODAY. CM NOTIFIED ELISE IN REHAB. [facility] INPATIENT REHAB TO CONTACT MED 2 NURSE WITH ROOM NUMBER WHEN READY TO ACCEPT PT AND NURSE REPORT. Francisco Avendaño, CASE MANAGEMENT
[2017-02-28 16:24] VITALS: BP 101/53
--- NOTE | 2017-02-28 17:09 | NUR ---
REPORT CALLED INTO CAMILA IN REHAB. PT AWARE OF DC TO REHAB ORDERS. IV DC WITH CATHETER TIP INTACT. PT BREATHING NORMAL AND UNLABORED. 0 S/SX OF DISTRESS/DISCOMFORT NTOED. TRANSFERED TO [facility]IA BED NOW UNDER THE CARE OF CAMILA.
--- NOTE | 2017-03-06 11:43 | CN ---
PATIENT NAME:ELIZABETH HOLLY MEDICAL RECORD: [id number] : 54 LOCATION:D. D.2102 ADMIT DATE: 02/20/17 ACCOUNT: [id number] CONSULTING PHYSICIAN: SALMA WHITE MD REFERRING PHYSICIAN: TRINITY MOSCOSO MD DATE OF CONSULTATION: 02/21/2017 Pulmonary Consultation CONSULT REQUESTING PHYSICIAN: Trinity Moscoso MD REASON FOR CONSULTATION: Pneumonia, right lower lobe. HISTORY OF PRESENT ILLNESS: Mr. Holly is a 67-year-old gentleman who was admitted yesterday with left-sided weakness. 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 On evaluation, it was found that he has possible infiltrate right lower lobe as well as right pleural effusion. He has no significant leukocytosis. The patient is very poorly communicative. The history was taken mainly by reviewing the patient's note and talking to Dr. Moscoso. REVIEW OF SYSTEMS: Mainly in the history of present illness. PAST MEDICAL HISTORY: 1. Hypertension. 2. Hyperlipidemia. 3. Gastroesophageal reflux disease. 4. History of cerebral palsy. 5. History of cerebrovascular accident. 6. Hyperlipidemia. ALLERGIES: No known drug allergy. MEDICATIONS: He is on Levaquin IV, his albuterol/ipratropium nebulizer, Lovenox. His other medication is reviewed. PERSONAL AND SOCIAL HISTORY: The patient is a nonsmoker, nondrinker. FAMILY HISTORY: Noncontributory. PHYSICAL EXAMINATION: GENERAL: Now, the patient is lying comfortably in bed. He is not in acute distress. VITAL SIGNS: The blood pressure is 158 to 173/101, respirations 24, temperature is 98.4, SpO2 is 92% on room air, pulse is 125. HEENT: Conjunctivae are pink. Sclerae nonicteric. NECK: Supple. No JVD. CHEST: There are crackles at the right base. No wheezing. HEART: Rhythm regular, normal sound, no murmur. ABDOMEN: Soft. Bowel sounds present. No hepatosplenomegaly. RECTAL: Deferred. EXTREMITIES: No cyanosis, no clubbing, no pedal edema. SKIN: Warm, normal turgor. CENTRAL NERVOUS SYSTEM: The patient's weakness on the right side. He is awake and alert. CONSULT REPORT [id number] ELIZABETH HOLLY OTHER LABORATORY DATA: CBC: The WBC is 24.3, hemoglobin is 10.2, hematocrit 29.6, platelet count 267. Chemistry: Sodium 143, potassium 3.1. BUN is 838, creatinine 1.7. Liver enzymes within normal range. Albumin is 3. CHEST RADIOGRAPH: There is a questionable infiltrate, right lower lobe. There is questionable right pleural effusion. CT scan of the chest on 01/30/2017, there is an elevated right hemidiaphragm with atelectasis of the right lung base. IMPRESSION: 1. Pneumonia, right lower lobe, most likely community-acquired pneumonia, possible aspiration with a history of cerebrovascular accident. 2. Leukocytosis most likely secondary to pneumonia, elevated right hemidiaphragm. 3. Atelectasis in the right lower lobe. 4. History of cerebrovascular accident. 5. Right hemiplegia. 6. Questionable right pleural effusion. RECOMMENDATIONS: 1. We will follow up the chest radiograph 2. Continue Levaquin. I will add Rocephin to cover for Gram-negative bisi. 3. Follow up labs and chest radiograph. 4. DVT prophylaxis. Dr. Moscoso, thank you for involving me in the care of Mr. Holly. TRANSINT:[id number] Voice Confirmation ID: [id number] DOCUMENT ID: [id number] SALMA WHITE MD at 1143 CC: TRINITY MOSCOSO MD [id number] DICTATION DATE: 02/21/17 160 AUTO STRIPER: 02/21/172045 DIS IN 02/28/17 [facility] [address] [place] [address]
== END 2017-02-28 18:30 | DRG 177 ==
LOC: D.ER 10:30 → D.M2 15:04 → D.SDCHOLD 15:04 → D.M2 15:42
PROVIDERS: Emergency Medicine; Family Medicine; ADMIT Family Medicine
PROC: 0T9B70Z Drainage of Bladder with Drainage Device, Via Natural or Artificial Opening (ICD-10-PCS; principal; 2017-02-21)
DX: J69.0 Pneumonitis due to inhalation of food and vomit (principal); I63.512 Cerebral infarction due to unspecified occlusion or stenosis of left middle cerebral artery; G81.91 Hemiplegia, unspecified affecting right dominant side; N17.9 Acute kidney failure, unspecified; J98.11 Atelectasis; G80.9 Cerebral palsy, unspecified; G40.909 Epilepsy, unspecified, not intractable, without status epilepticus; E87.6 Hypokalemia; D64.9 Anemia, unspecified; E78.5 Hyperlipidemia, unspecified; I10 Essential (primary) hypertension; K21.9 Gastro-esophageal reflux disease without esophagitis; R40.2363 Coma scale, best motor response, obeys commands, at hospital admission; R40.2143 Coma scale, eyes open, spontaneous, at hospital admission; R40.2253 Coma scale, best verbal response, oriented, at hospital admission; Z86.73 Personal history of transient ischemic attack (TIA), and cerebral infarction without residual deficits

== ENCOUNTER 2017-02-28 17:00 | Inpatient (IN) | payer MEDICARE ==
[~2017-02-28 17:00] MED LIST: AVODART0.5 MG PO; CEFTRIAXONE1 G/VIAL IM; DIOVAN HCT 160/1 TA1 PO; FLOMAX0.4 MG PO; HCTZ25 MG PO; IPRAT-ALBUT 0.5-3 ML INH; LEVAQUIN500 MG PO; LIPITOR10 MG PO; MOBIC7.5 MG PO; NORVASC5 MG PO; PAXIL40 MG PO; PEPCID20 MG PO; PRINIVIL10 MG PO
[2017-02-28 18:15] VITALS: BP 137/65; BMI 27.0
--- NOTE | 2017-02-28 20:20 | NUR ---
PT. IN BED WITH HOB UP FOR COMFORT AND IS WATCHING TV. ASSESSMENT COMPLETED AND HIS CALL LIGHT IS WITHIN REACH.
--- NOTE | 2017-02-28 20:30 | NUR ---
SPOKE TO PT'S MOTHER OVER THE PHONE AND GOT VERBAL CONSENT FOR REHAB [place].
[2017-02-28 22:51] VITALS: BP 137/65
--- NOTE | 2017-02-28 22:55 | NUR ---
ESTER MONK REPORTS THAT PT. HAS URINATED ON THE TOWEL THAT WAS LEFT BETWEEN HIS LEGS AND THIS IS APPARENTLY THE FIRST VOID SINCE CATHETER WAS REMOVED UPSTAIRS BEFORE TRANSFER TODAY.
--- NOTE | 2017-02-28 23:56 | NUR ---
PT. IN BED WITH HOB UP FOR COMFORT WITH EYES CLOSED AND RESP. DEEP AND EVEN. CALL LIGHT WITHIN REACH.
--- NOTE | 2017-03-01 03:11 | NUR ---
PT. IN BED WITH HOB UP FOR COMFORT WITH EYES CLOSED AND RESP. DEEP. CALL LIGHT WITHIN REACH.
[2017-03-01 05:58] LABS: BASOPHILS 0.3 % (0-2); EOSINOPHILS 2.2 % (0-7); HEMATOCRIT 33.1 % (42.0-54.0); HEMOGLOBIN 10.4 g/dL (13.5-17.5); IMMATURE GRANULOCYTES 4.3 % (0-5); LYMPHOCYTES 9.6 % (15-50); MCH 29.5 pg (26.0-34.0); MCHC 31.4 g/dL (31.0-37.0); MCV 93.8 fL (80.0-100.0); MONOCYTES 8.4 % (2-11); NEUTROPHILS 75.2 % (40-80); PLATELET COUNT 279 10x3/uL (130-400); RBC 3.53 10x6/uL (4.20-6.10); RDW 17.2 % (11.5-14.5); WBC 17.6 10x3/uL (4.8-10.8)
[2017-03-01 06:16] LABS: ANION GAP 14.4 mmol/L (8-16); CARBON DIOXIDE 26.1 mmol/L (21.0-32.0); CREATININE - SERUM 1.1 mg/dL (0.6-1.3); POTASSIUM - SERUM 3.5 mmol/L (3.5-5.1)
--- NOTE | 2017-03-01 08:00 | NUR ---
PATIENT IS WAKE. VERY POOR COMMUNACATIONS. ABLE TO ANSWEAR YES AND NO QUESTIONS. HAS COMMUNACATION CHARTS AT BEDSIDE. AMINATA ALARM ON BED. CALL LIGHT WITHIN REACH. THIS NURSE OPENED CONTAINERS ON BREAKFAST TRAY. CUT FOOD, AND BUTTERED TOAST FOR PATIENT. PATIENT ABLE TO FEED SELF IF TRAY IS PLACED ON LEFT SIDE.
[2017-03-01 08:23] VITALS: BP 120/73
--- NOTE | 2017-03-01 10:33 | NUR ---
PATIENT IN REHAB ROOM. WORKING WITH PHYSICAL THERAPIST. NO S/S OF PAIN/DISC
[2017-03-01 10:52] VITALS: BMI 27.0
--- NOTE | 2017-03-01 11:57 | NUR ---
PATIENT SITTING UP IN WHEELCHAIR AT BEDSIDE FOR LUNCH. ALARM ON. CALL LIGHT WITHIN REACH
--- NOTE | 2017-03-01 14:21 | NUR ---
PATIENT PUT BACK INTO BED BY PHYSICAL THERAPIST AND OCCUPATIONAL THERAPIST. TOTAL ASST. OF TWO TO THREE PEOPLE TO GET BACK INTO BED. PATIENT INCONT. OF BOWEL AND BLADDER.
--- NOTE | 2017-03-01 17:30 | NUR ---
EATING SUPPER.CL IN REACH.
--- NOTE | 2017-03-01 19:20 | NUR ---
IN BED, AWAKE. DENIES NEEDS.
--- NOTE | 2017-03-01 20:30 | NUR ---
RESTING QUIETLY, EYES CLOSED.
[2017-03-01 22:00] VITALS: BP 120/68
--- NOTE | 2017-03-01 22:45 | NUR ---
ASSISTED PLATFORM SUPERVISOR TO REPOSITION PATIENT AFTER SHE BATHED HIM SUBSEQUENT TO LARGE URINE INCONTINENCE.
--- NOTE | 2017-03-01 23:45 | NUR ---
ASSESSMENT AND HS MEDS COMPLETE. DENIES NEEDS.
--- NOTE | 2017-03-02 01:45 | NUR ---
RESTING QUIETLY IN BED USING AUDIBLE RESPIRATIONS. PATIENT IS A MOUTH BREATHER AND HAS FREQUENT SHORT PERIODS OF APNEA LASTING UP TO 10 SECONDS.
--- NOTE | 2017-03-02 07:30 | NUR ---
ASSISTED HELIO RN WITH INCONTIENCE CARE DUE TO LARGE URINE INCONTIENCE. DENIES ANY NEEDS OR PAIN. ALERT TO SELF AND PLACE. REORIENTED TO TIME AND SITUATION. CALL LIGHT WITHIN REACH, BED ALARM ON AND BED IN LOWEST POSITION. WILL CONTINUE TO MONITOR
[2017-03-02 08:00] VITALS: BP 126/66
--- NOTE | 2017-03-02 11:29 | NUR ---
IN THERAPY GYM WITH OCCUPATIONAL THERAPY. NO S.SX OF DISTRESS. WILL CONTINUE TO MONITOR
--- NOTE | 2017-03-02 16:27 | NUR ---
LYING IN BED RESTING QUIETLY. APPROPRIATE RISE AND FALL OF CHEST. NO S/SX OF DISTRESS. CALL LIGHT WITHIN REACH, BED IN LOWEST POSITION AND ALARM ON.
--- NOTE | 2017-03-02 17:49 | NUR ---
EATING SUPPER.CL IN REACH.
--- NOTE | 2017-03-02 19:30 | NUR ---
PT RESTING IN BED WITH EYES CLOSED. AWOKE EASILY TO VERBAL STIMULI. CONFUSED TO ALL SURROUNDINGS. COOPERATIVE WITH STAFF. TELEMETRY UNIT ON AND INTACT. VSS. PT DENIES ANY NEEDS. SR'S ARE UP X 3 IN BED. CALL LIGHT AND BEDSIDE TABLE ARE WITHIN EASY REACH. BED ALARM IS ON.
--- NOTE | 2017-03-02 20:00 | NUR ---
VERIFIED POSITION OF SCD WRAPS AND STARTED SCD PUMP TO BILAT LE'S. PATIENT DENIES NEEDS.
--- NOTE | 2017-03-02 21:32 | NUR ---
RESTING QUIETLY IN BED WITH EYES CLOSED. RESPS ARE EVEN AND UNLABORED. NO ACUTE DISTRESS NOTED.
--- NOTE | 2017-03-03 00:01 | NUR ---
PT RESTING IN BED WITH EYES CLOSED.
--- NOTE | 2017-03-03 02:49 | NUR ---
RESTING IN BED WITH EYES CLOSED.
--- NOTE | 2017-03-03 06:27 | NUR ---
PT IS RESTING IN BED WITH EYES OPEN. I ASKED HIM IF HE NEEDED TO BE CHANGED. HE SAID THAT HE WAS NOT WET. I ASKED HIM IF HE NEEDED TO GO TO THE BATHROOM. HE DENIED THIS NEED ALSO. HE DENIES ANY NEEDS AT THIS TIME.
[2017-03-03 07:02] LABS: BASOPHILS 0.1 % (0-2); EOSINOPHILS 3.2 % (0-7); HEMATOCRIT 32.4 % (42.0-54.0); HEMOGLOBIN 10.4 g/dL (13.5-17.5); IMMATURE GRANULOCYTES 2.3 % (0-5); LYMPHOCYTES 8.6 % (15-50); MCH 30.1 pg (26.0-34.0); MCHC 32.1 g/dL (31.0-37.0); MCV 93.6 fL (80.0-100.0); MEAN PLATELET VOLUME 11.2 fL (7.4-10.4); NEUTROPHILS 78.8 % (40-80); RBC 3.46 10x6/uL (4.20-6.10); RDW 16.7 % (11.5-14.5)
[2017-03-03 07:08] LABS: PLATELET COUNT 205 10x3/uL (130-400); WBC 10.9 10x3/uL (4.8-10.8)
[2017-03-03 07:15] LABS: ANION GAP 11.8 mmol/L (8-16); CARBON DIOXIDE 27.6 mmol/L (21.0-32.0); CREATININE - SERUM 1.1 mg/dL (0.6-1.3); POTASSIUM - SERUM 3.4 mmol/L (3.5-5.1)
--- NOTE | 2017-03-03 07:34 | NUR ---
AWAKE UP IN BED.CL IN REACH.
--- NOTE | 2017-03-03 08:18 | NUR ---
PT RESTING IN BED WITH EYES OPEN CALL LIGHT IN REACH NO PROBLEMS WILL MONITER
[2017-03-03 09:36] VITALS: BP 138/66
--- NOTE | 2017-03-03 18:17 | NUR ---
PTRESTING IN BED WITH EYES OPEN CALL LIGHT IN REACH NO PROBLEMS WILL MONITER
--- NOTE | 2017-03-03 19:30 | NUR ---
PT IS RESTING IN BED WITH EYES OPEN. ALERT TO SELF. DIFFICULT TO DETERMINE ORIENTATION DUE TO PT NOT COMMUNICATING WELL. HE ANSWERS YES AND NO QUESTIONS, BUT NOT ALWAYS APPROPRIATELY. TELEMETRY UNIT IS ON AND INTACT. SR'S ARE UP X 3 IN BED. CALL LIGHT AND BEDSIDE TABLE ARE WITHIN EASY REACH.
[2017-03-03 20:00] VITALS: BP 135/81
--- NOTE | 2017-03-03 20:00 | NUR ---
APPLIED PATIENT'S SCD LEGGINGS, HOWEVER, WHEN I ATTEMPTED TO START PUMP, UNIT INDICATED LOW BATTERY CONDITION. PLUGGED PUMP INTO 2 DIFFERENT OUTLETS AND CONTINUED TO INDICATE LOW BATTERY AND THAT UNIT NEEDED TO BE PLUGGED IN. APPEARS THERE IS A PROBLEM WITH POWER SUPPLY/ACCOUNTS RECEIVABLE SPECIALIST. WILL CALL IN WORK ORDER TO BIOMEDICAL ENGINEERING DEPT.
--- NOTE | 2017-03-03 21:47 | NUR ---
PT IS RESTING QUIETLY IN BED WITH EYES CLOSED. RESPS ARE EVEN AND UNLABORED. SNORING SOUNDS NOTED OCCASIONALLY.
--- NOTE | 2017-03-04 00:17 | NUR ---
RESTING IN BED WITH EYES CLOSED.
--- NOTE | 2017-03-04 06:24 | NUR ---
PT RESTING IN BED WITH EYES OPEN. TOLERATED AM MED THROUGH PEG TUBE WITHOUT DIFFICULTY. NO NEEDS VOICED. USING URINAL PRN.
--- NOTE | 2017-03-04 07:45 | NUR ---
SITTING UP IN BED ALERT AND ORIENTED TO PERSON AND PLACE. REORIENTED TO TIME AND SITUATION. ASSISTED WITH BREAKFAST ATE 25% OF MEAL. NO S/SX OF DISTRESS. CALL LIGHT WITHIN REACH, BED ALARM ON AND BED IN LOWEST POSITION. WILL CONTINUE TO MONITOR
[2017-03-04 08:00] VITALS: BP 123/59
--- NOTE | 2017-03-04 08:18 | NUR ---
PT EATING BREAKFAST, DENIES NEEDS. WCTM.
--- NOTE | 2017-03-04 10:23 | NUR ---
PERFORMED INCONTINENT CARE DUE TO MED URINE INCONTINENCE. NO S/SX OF ACUTE DISTRESS. CALL LIGHT WITHIN REACH, BED IN LOWEST POSITION AND ALARM ON. WILL CONTINUE TO MONITOR
--- NOTE | 2017-03-04 16:14 | NUR ---
LYING IN BED ON LEFT SIDE. EASILY AROUSED WITH STIMULI. NO S/SX OF DISTRESS. CALL LIGHT WITHIN REACH, BED ALARM ON AND BED IN LOWEST POSITION. WILL CONTINUE TO MONITOR
--- NOTE | 2017-03-04 18:30 | NUR ---
LYING IN BED RESTING COMFORTABLY. BRIEF CLEAN AND DRY. DENIES ANY NEEDS. CALL LIGHT WITHIN REACH, BED IN LOWEST POSITION, SIDE RAILS X2, ALARM ON. WILL CONTINUE TO MONITOR
--- NOTE | 2017-03-04 19:44 | NUR ---
PT IS RESTING QUIETLY IN BED WITH EYES OPEN. NO NEEDS VOICED.
[2017-03-04 20:30] VITALS: BP 113/71
--- NOTE | 2017-03-04 22:05 | NUR ---
RESTING QUIETLY IN BED WITH EYES CLOSED.
--- NOTE | 2017-03-05 01:10 | NUR ---
RESTING IN BED WITH EYES CLOSED.
--- NOTE | 2017-03-05 03:18 | NUR ---
RESTING IN BED WITH EYES CLOSED. NO S/S OF DISTRESS OBSERVED.CALL LIGHT ANDS OVERBED TABLE IN REACH.
--- NOTE | 2017-03-05 06:27 | NUR ---
PT RESTING IN BED WITH EYES OPEN. INC. CARE GIVEN. NO ACUTE DISTRESS NOTED.
--- NOTE | 2017-03-05 07:45 | NUR ---
ASSISTED WITH BREAKFAST, ATE 50% OF MEAL. ALERT AND ORIENTED TO PERSON AND PLACE. REORIENTED TO TIME AND SITUATION. DENIES ANY NEEDS OR PAIN. NO S/SX OF ACUTE DISTRESS. CALL LIGHT WITHIN REACH, BED ALARM ON AND BED IN LOWEST POSITION. WILL CONTINUE TO MONITOR
--- NOTE | 2017-03-05 11:39 | NUR ---
SITTING UP IN BED RESTING. DENIES ANY NEEDS OR PAIN. NO S/SX OF DISTRESS. BRIEF CLEAN AND DRY. CALL LIGHT WITHIN REACH, BED LOW AND ALARM ON. WILL CONTINUE TO MONITOR
[2017-03-05 12:07] VITALS: BP 137/88
--- NOTE | 2017-03-05 12:28 | NUR ---
PT RESTING IN ROOM, DENIES NEEDS. WCTM.
--- NOTE | 2017-03-05 15:35 | NUR ---
LYING IN BED RESTING COMFORTABLY. NO S/SX OF ACUTE DISTRESS. CALL LIGHT WITHIN REACH, BED LOW AND ALARM ON. WILL CONTINUE TO MONITOR
--- NOTE | 2017-03-05 19:22 | NUR ---
PT IS RESTING IN BED WITH EYES CLOSED. NO ACUTE DISTRESS NOTED. AWOKE EASILY TO VERBAL STIMULI. INC. CARE GIVEN AT THIS TIME. TELEMETRY UNIT IS ON AND INTACT. SR'S ARE UP X 3 IN BED. CALL LIGHT AND BEDSIDE TABLE ARE WITHIN EASY REACH.
[2017-03-05 19:50] VITALS: BP 119/83
--- NOTE | 2017-03-05 21:30 | NUR ---
RESTING QUIETLY IN BED WITH EYES CLOSED. NO ACUTE DISTRESS NOTED.
--- NOTE | 2017-03-05 23:30 | NUR ---
PT RESTING IN BED WITH EYES CLOSED.
--- NOTE | 2017-03-06 04:05 | NUR ---
RESTING IN BED WITH EYES CLOSED. NO S/S OF DISTRESS OBSERVED. CALL LIGHT AND OVERBED TABLE IN REACH.
--- NOTE | 2017-03-06 06:55 | NUR ---
RESTING QUIETLY IN BED. BED IN LOWEST POSITION. CALL LIGHT IN REACH.
--- NOTE | 2017-03-06 08:15 | NUR ---
PT RESTING IN BED WITH EYES OPEN CALL LIGHT IN REACH NO PROBLEMS WILL MONITER
[2017-03-06 08:37] VITALS: BP 128/66
--- NOTE | 2017-03-06 18:14 | NUR ---
PT RESTING IN BED WITH EYES OPEN CALL LIGHT IN REACH NO PROBLEMS WILL MONITER
--- NOTE | 2017-03-06 19:55 | NUR ---
PT. IN BED WITH HOB UP FOR COMFORT WITH EYES CLOSED AND RESP. EVEN. CALL LIGHT WITHIN REACH.
--- NOTE | 2017-03-06 20:10 | NUR ---
PT IN BED WITH HOB UP FOR COMFORT. RESTING QUIETLY. NO O2. NO IV. TELEMETRY. INCONTINENT. SOFT SPOKEN. MAX. ASSIST. BED IN LOWEST POSITION AND CALL LIGHT WITHIN REACH.
[2017-03-06 21:00] VITALS: BP 105/68
--- NOTE | 2017-03-07 00:10 | NUR ---
PT IN BED WITH HOB UP FOR COMFORT. EYES CLOSED. CHEST RISING AND FALLING. BED IN LOWEST POSITION AND CALL LIGHT WITHIN REACH.
--- NOTE | 2017-03-07 04:10 | NUR ---
PT IN BED WITH HOB UP FOR COMFORT. RESTING QUIETLY. RESP. EVEN. BED IN LOWEST POSITION AND CALL LIGHT WITHIN REACH.
--- NOTE | 2017-03-07 06:48 | NUR ---
PT BRIEF CHECKED AND PT IS DRY. ASKED PT IF HE WANTED A SIP OF WATER PT STATED "NO." ASKED PT IF HE NEEDED ANYTHING PT STATED "NO."
--- NOTE | 2017-03-07 07:35 | NUR ---
SITTING UP IN BED RESTING. ALERT AND ORIENTED TO X3. REORIENTED TO TIME. NO S/SX OF DISTRESS. CALL LIGHT WITHIN REACH, BED ALARM ON AND BED IN LOWEST POSITION, SR X3. WILL CONTINUE TO MONITOR
--- NOTE | 2017-03-07 08:00 | NUR ---
RESTING QUIETLY.MEAL SET-UP PROVIDED.CL IN REACH.
[2017-03-07 08:33] VITALS: BP 114/69
--- NOTE | 2017-03-07 12:50 | NUR ---
ASSISTED FERN DIRECTOR OF PROGRAM MANAGEMENT WITH TRANSFER FROM W/C TO TOILET WITH MAX ASSIST. ORIENTED TO CALL LIGHT IN BATHROOM.
--- NOTE | 2017-03-07 14:13 | NUR ---
Nutrition Follow Up: Pt is eating 44% meal avg on a regular diet. +BM 03/06/17. Meds and labs reviewed. Rec continue current diet. Will continue to honor food preferences. RD following.
--- NOTE | 2017-03-07 15:23 | NUR ---
PATIENT ADMITTED TO REHAB FROM ACUTE FLOOR. DR. TURNER IS PATIENT PCP AND FOR HIS PHARMACY NEEDS HE USES [facility] ON [address]. PRIOR TO THIS HOSPITAL ADISSION HE WAS INDEPENDENT IN WALKING AND HIS ADL'S. WILL CONTINUE TO FOLLOW WITH PATIENT AND WILL ASSIST WITH DISCHARGE NEEDS.
--- NOTE | 2017-03-07 16:21 | NUR ---
LYING IN BED EYES CLOSED RESTING. APPROPRIATE RISE AND FALL OF CHEST. NO S/SX OF ACUTE DISTRESS. CALL LIGHT WITHIN REACH, BED ALARM ON, SR X2 AND IN LOWEST POSITION. WILL CONTINUE TO MONITOR
--- NOTE | 2017-03-07 19:37 | NUR ---
PT. IN BED WITH HOB UP FOR COMFORT WITH EYES CLOSED AND RESP. VERY DEEP AND EVEN. CALL LIGHT WITHIN REACH.
[2017-03-07 22:09] VITALS: BP 91/52
--- NOTE | 2017-03-08 | NUR ---
PT IN BED WITH HOB UP FOR COMFORT. RESTING QUIETLY. RESPIRATIONS EVEN AND UNLABORED. BED IN LOWEST POSITION AND CALL LIGHT WITHIN REACH.
[2017-03-08 06:13] LABS: BASOPHILS 0.1 % (0-2); EOSINOPHILS 1.1 % (0-7); HEMATOCRIT 36.2 % (42.0-54.0); HEMOGLOBIN 11.7 g/dL (13.5-17.5); IMMATURE GRANULOCYTES 0.7 % (0-5); LYMPHOCYTES 4.6 % (15-50); MCH 29.9 pg (26.0-34.0); MCHC 32.3 g/dL (31.0-37.0); MCV 92.6 fL (80.0-100.0); MEAN PLATELET VOLUME 11.9 fL (7.4-10.4); NEUTROPHILS 83.5 % (40-80); RBC 3.91 10x6/uL (4.20-6.10); WBC 11.4 10x3/uL (4.8-10.8)
[2017-03-08 06:32] LABS: PLATELET COUNT 269 10x3/uL (130-400)
[2017-03-08 06:34] LABS: ANION GAP 14.7 mmol/L (8-16); CARBON DIOXIDE 23.5 mmol/L (21.0-32.0); CREATININE - SERUM 1.3 mg/dL (0.6-1.3); POTASSIUM - SERUM 3.2 mmol/L (3.5-5.1)
[2017-03-08 08:42] VITALS: BP 100/58
--- NOTE | 2017-03-08 09:41 | NUR ---
SITTING UP IN W/C IN ROOM. OT WORKING WITH PT.
--- NOTE | 2017-03-08 15:16 | NUR ---
CARE TEAM MEETING: PATIENT MOTHER ATTENDED MEETING. DISCUSSED AND ANSWERED QUESTIONS. PATIENT TENATIVE DISCHARGE DATE IS 03/23/17. WILL CONTINUE TO FOLLOW WITH PATIENT AND WILL ASSIST WITH DISCHRGE NEEDS.
--- NOTE | 2017-03-08 18:17 | NUR ---
RESTING QUIETLY IN BED. CALL LIGHT IN REACH.
--- NOTE | 2017-03-08 19:17 | NUR ---
PT. IN BED WITH HOB UP FOR COMFORT WITH EYES CLOSED AND RESP. DEEP AND EVEN. CALL LIGHT WITHIN REACH.
[2017-03-08 20:30] VITALS: BP 111/57
--- NOTE | 2017-03-08 22:10 | NUR ---
RECEIVED BED BATH BY LACHO NORMAN.
--- NOTE | 2017-03-09 | NUR ---
PT IN BED WITH HOB UP FOR COMFORT. EYES CLOSED. CHEST RISING AND FALLING. BED IN LOWEST POSITION AND CALL LIGHT WITHIN REACH.
--- NOTE | 2017-03-09 03:30 | NUR ---
PT IN BED WITH HOB UP FOR COMFORT. EYES CLOSED. CHEST RISING AND FALLING. BED IN LOWEST POSITION AND CALL LIGHT WITHIN REACH.
--- NOTE | 2017-03-09 06:50 | NUR ---
PT UP IN BED WITH HOB UP FOR COMFORT. RESTING QUIETLY. RESP. EVEN. URINAL IN REACH. BED IN LOWEST POSITION AND CALL LIGHT WITHIN REACH.
--- NOTE | 2017-03-09 07:19 | NUR ---
RESTING QUIETLY IN BED. BED IN LOWEST POSITION. CALL LIGHT IN REACH
--- NOTE | 2017-03-09 07:30 | NUR ---
SITTING UP IN BED EYES OPEN RESTING. ALERT AND ORIENTED TO PERSON AND PLACE. REORIENTED TO TIME AND SITUATION. DENIES ANY NEEDS OR PAIN. CALL LIGHT WITHIN REACH, BED ALARM ON, SR X2 AND BED IN LOWEST POSITION. WILL CONTINUE TO MONITOR
[2017-03-09 08:04] VITALS: BP 114/70
--- NOTE | 2017-03-09 12:14 | NUR ---
SITTING UP IN W/C. DENIES ANY NEEDS. CALL LIGHT WITHIN REACH, W/C BRAKES LOCKED AND ALARM ON. WILL CONTINUE TO MONITOR
--- NOTE | 2017-03-09 14:14 | NUR ---
SITTING UP IN W/C. DENIES ANY NEEDS. NO S/SX OF DISTRESS. CALL LIGHT WITHIN REACH, W/C BRAKES LOCKED AND ALARM ON. WILL CONTINUE TO MONITOR
--- NOTE | 2017-03-09 19:30 | NUR ---
NEW SCD PUMP OBTAINED FORMED PUMP IS INOPERATIVE. APPLIED SCD LEGGINGS AND STARTED NEW PUMP.
--- NOTE | 2017-03-09 20:20 | NUR ---
REST IN BED QUIETLY, EYE CLOSE, HOB 30 DEGREE, CALL LIGHT IN REACH.
[2017-03-09 22:56] VITALS: BP 104/70
--- NOTE | 2017-03-09 23:33 | NUR ---
REST IN BED, EYE CLOSE, SIDERAIL X 2, BED LOW, CALL LIGHT IN REACH.
--- NOTE | 2017-03-10 01:00 | NUR ---
RESTING IN BED, EYES CLOSED.
--- NOTE | 2017-03-10 03:00 | NUR ---
CLEANSED AND CHANGED PATIENT FROM LARGE URINARY INCONTINENCE. REQUIRED COMPLETE LINEN CHANGE.
[2017-03-10 05:17] LABS: BASOPHILS 0.1 % (0-2); EOSINOPHILS 1.9 % (0-7); HEMATOCRIT 34.1 % (42.0-54.0); HEMOGLOBIN 10.9 g/dL (13.5-17.5); IMMATURE GRANULOCYTES 0.5 % (0-5); LYMPHOCYTES 5.2 % (15-50); MCH 29.6 pg (26.0-34.0); MCV 92.7 fL (80.0-100.0); MEAN PLATELET VOLUME 11.2 fL (7.4-10.4); MONOCYTES 11.2 % (2-11); NEUTROPHILS 81.1 % (40-80); PLATELET COUNT 271 10x3/uL (130-400); RBC 3.68 10x6/uL (4.20-6.10); RDW 15.3 % (11.5-14.5); WBC 7.9 10x3/uL (4.8-10.8)
[2017-03-10 05:30] LABS: ANION GAP 14.2 mmol/L (8-16); CALCIUM 9.1 mg/dL (8.5-10.1); CARBON DIOXIDE 23.7 mmol/L (21.0-32.0); CREATININE - SERUM 1.1 mg/dL (0.6-1.3); POTASSIUM - SERUM 3.9 mmol/L (3.5-5.1)
--- NOTE | 2017-03-10 07:30 | NUR ---
PT RESTING IN BED, VS TAKEN. PT DENIES NEEDS. WCTM.
[2017-03-10 09:00] VITALS: BP 145/79
--- NOTE | 2017-03-10 10:05 | NUR ---
PT AM MEDS ADMINISTERED. PT IN THERAPY GYM, TOLERATING WELL, DENIES NEEDS. WCTM.
--- NOTE | 2017-03-10 12:20 | NUR ---
PT SITTING UP IN WC EATING LUNCH. PT STATES HE IS NOT VERY HUNGRY. ENCOURAGED PT TO TRY AND EAT WHATEVER HE COULD. PT STATED HE WOULD TRY TO EAT.
--- NOTE | 2017-03-10 16:35 | NUR ---
PT ASSISTED TO BR. PT HAD SM BM. PT SITTING UP IN WC WAITING FOR DINNER, WCTM.
[2017-03-10 18:15] VITALS: BP 93/57
--- NOTE | 2017-03-10 18:16 | NUR ---
PT SITTING UP IN WC EATING DINNER, DENIES NEEDS. WCTM.
--- NOTE | 2017-03-10 19:15 | NUR ---
PATIENT IN BED, AWAKE. MOTHER JUST LEFT THE UNIT AFTER VISITING.
--- NOTE | 2017-03-10 20:00 | NUR ---
RESTING QUIETLY IN BED, EYES CLOSED.
--- NOTE | 2017-03-11 00:30 | NUR ---
RESTING IN BED, EYES CLOSED. DEEP AUDIBLE RESPIRATIONS ARE UNLABORED.
--- NOTE | 2017-03-11 02:15 | NUR ---
RESTING QUIETLY IN BED, EYES CLOSED. APPEARS COMFORTABLE.
--- NOTE | 2017-03-11 03:55 | NUR ---
REMAINS IN BED, EYES CLOSED. NO EVIDENT DISTRESS.
--- NOTE | 2017-03-11 06:20 | NUR ---
RESTING QUIETLY IN BED, EYES CLOSED.
--- NOTE | 2017-03-11 07:26 | NUR ---
sitting up in bed resting. alert and oriented to person and place. reoriented to time and situation. denies any pain. no s/sx of distress. call light within reach, bed alarm on and bed in lowest position. will continue to monitor
[2017-03-11 08:00] VITALS: BP 113/77
--- NOTE | 2017-03-11 10:02 | NUR ---
SITTING UP IN BED WATCHING TV. DENIES ANY PAIN. NO S/SX OF ACUTE DISTRESS. CALL LIGHT WITHIN REACH, BED ALARM ON AND BED IN LOWEST POSITION. WILL CONTINUE TO MONITOR
--- NOTE | 2017-03-11 13:45 | NUR ---
SITTING UP IN BED RESTING. DENIES ANY NEEDS OR PAIN. NO S/SX OF ACUTE DISTRESS. CALL LIGHT WITHIN REACH, BED ALARM ON, SIDE TABLE WITHIN REACH. WILL CONTINUE TO MONITOR
--- NOTE | 2017-03-11 14:38 | NUR ---
NAPPING.CL IN REACH.
--- NOTE | 2017-03-11 18:00 | NUR ---
PERFORMED INCONTINENT CARE DUE TO LARGE URINE INCONTIENCE. CHANGED PAD AND BRIEF. APPLIED CALMOSEPTINE TO EXCORIATED BUTTOCKS. CALL LIGHT WITHIN REACH, BED ALARM ON, SCDS ON, BEDSIDE TRAY WITHIN REACH, BED LOW. WILL CONTINUE TO MONITOR
--- NOTE | 2017-03-11 20:20 | NUR ---
REST ON BED, HOB 35 DEGREE, BED LOW, CALL LIGHT IN REACH.
[2017-03-11 22:00] VITALS: BP 130/59
--- NOTE | 2017-03-12 01:25 | NUR ---
IN BED, EYES CLOSED. AUDIBLE RESPIRATIONS ARE REGULAR AND DEEP.
--- NOTE | 2017-03-12 03:28 | NUR ---
REST QUIETLY IN BED, EYE CLOSE, CALL LIGHT IN REACH.
--- NOTE | 2017-03-12 07:25 | NUR ---
SITTING UP IN BED ALERT AND ORIENTED TO PERSON AND PLACE. REORIENTED TO TIME AND SITUATION. DENIES ANY PAIN OR NEEDS. NO S/SX OF ACUTE DISTRESS. CALL LIGHT WITHIN REACH, BED LOW AND ALARM ON. BEDSIDE TRAY AND WATER WITHIN REACH. WILL CONTINUE TO MONITOR
[2017-03-12 08:00] VITALS: BP 113/72
--- NOTE | 2017-03-12 10:47 | NUR ---
SITTING UP IN BED EYES CLOSED RESTING. APPROPRIATE RISE AND FALL OF CHEST. NO S/SX OF RESPIRATORY DISTRESS. CALL LIGHT WITHIN REACH, BED ALARM ON, BED LOW, WATER WITHIN REACH. WILL CONTINUE TO MONITOR
--- NOTE | 2017-03-12 14:00 | NUR ---
AWAKE UP IN BED.CL IN REACH.
--- NOTE | 2017-03-12 14:31 | NUR ---
PERFORMED INCONTINENT CARE D/T MED URINE INCONTIENCE. CHANGED PAD AND BRIEF. APPLIED CALMOSEPTINE TO BUTTOCKS AND SCROTUM D/T EXCORIATION. CALL LIGHT WITHIN REACH, BED ALARM ON, SR X2, BED LOW, AND WATER WITHIN REACH.
--- NOTE | 2017-03-12 19:30 | NUR ---
PT IS RESTING IN BED WITH EYES OPEN. ALERT TO SELF. DIFFICULTY TO DETERMINE CORRECT ORIENTATION DUE TO PT NOT SPEAKING MUCH. WHEN ASKED HOW HE WAS DOING, HE REPLIED "OK", BUT WOULD NOT ANSWER ANY OTHER QUESTIONS. TELEMETRY UNIT IS ON AND INTACT. SMALL INC. OF URINE NOTED. BRIEF CHANGED AND BETHANIE CARE GIVEN. SR'S ARE UP X 3 IN BED. CALL LIGHT AND BEDSIDE TABLE ARE WITHIN EASY REACH.
[2017-03-12 20:00] VITALS: BP 116/54
--- NOTE | 2017-03-12 20:20 | NUR ---
PT. IN BED WITH HOB UP FOR COMFORT. SCD'S TO BLE'S WITHOUT ANY ALARMS. EYES ARE CLOSED AND RESP. EVEN. CALL LIGHT WITHIN REACH.
--- NOTE | 2017-03-12 20:46 | NUR ---
PT RESTING IN BED WITH EYES OPEN. DENIES NEEDS. TOLERATED PM MED WITHOUT DIFFICULTY.
--- NOTE | 2017-03-13 00:01 | NUR ---
PT IS RESTING IN BED WITH EYES CLOSED. NOTED TO BE INC. OF URINE. INC CARE AND PAD CHANGE DONE. NO FURTHER NEEDS VOICED.
--- NOTE | 2017-03-13 02:47 | NUR ---
RESTING QUIETLY IN BED WITH EYES CLOSED.
[2017-03-13 05:49] LABS: BASOPHILS 0.3 % (0-2); EOSINOPHILS 2.4 % (0-7); HEMATOCRIT 34.6 % (42.0-54.0); HEMOGLOBIN 11.1 g/dL (13.5-17.5); IMMATURE GRANULOCYTES 0.5 % (0-5); LYMPHOCYTES 7.6 % (15-50); MCH 29.5 pg (26.0-34.0); MCHC 32.1 g/dL (31.0-37.0); MONOCYTES 10.5 % (2-11); NEUTROPHILS 78.7 % (40-80); PLATELET COUNT 306 10x3/uL (130-400); RBC 3.76 10x6/uL (4.20-6.10); RDW 15.1 % (11.5-14.5); WBC 6.6 10x3/uL (4.8-10.8)
[2017-03-13 06:02] LABS: CALC OSMOLALITY 283 mosm/kg (275-300); CALCIUM 9.3 mg/dL (8.5-10.1); CARBON DIOXIDE 27.1 mmol/L (21.0-32.0); CHLORIDE - SERUM 105 mmol/L (98-107); GLUCOSE 104 mg/dL (74-106); POTASSIUM - SERUM 3.9 mmol/L (3.5-5.1); SODIUM 139 mmol/L (136-145); UREA NITROGEN 29 mg/dL (7-18); eGFR NON AFRICAN AMERICAN 80 mL/min (90-120)
--- NOTE | 2017-03-13 06:05 | NUR ---
RESTING IN BED WITH EYES CLOSED. AWOKE EASILY TO VERBAL STIMULI. INC. CARE GIVEN. NO ACUTE DISTRESS NOTED.
--- NOTE | 2017-03-13 07:57 | NUR ---
SITTING UP EATING BREAKFAST. BED IN LOWEST POSITION. CALL LIGHT IN REACH.
[2017-03-13 09:12] VITALS: BP 132/75
--- NOTE | 2017-03-13 10:07 | NUR ---
PATIENT IN REHAB ROOM. WORKING WITH PHYSICAL THERAPIST. DENIES ANY PAIN/DISC AT THIS TIME.
--- NOTE | 2017-03-13 11:31 | NUR ---
PATIENT HELPED TO BATHROOM. MOD ASST OF TWO FROM WHEELCHAIR ONTO TOILET.
--- NOTE | 2017-03-13 19:26 | NUR ---
RESTING IN BED WITH EYES CLOSED. AWAKENS EASILY TO VERBAL STIMULI. DENIES NEEDS. TELEMETRY UNIT IS ON AND INTACT. SR'S ARE UP X 3 IN BED. CALL LIGHT AND BEDSIDE TABLE ARE WITHIN EASY REACH. SCD'S PUT ON PT AT THIS TIME.
[2017-03-13 20:00] VITALS: BP 129/83
--- NOTE | 2017-03-13 22:04 | NUR ---
RESTING QUIETLY IN BED WITH EYES CLOSED. RESPS ARE EVEN AND UNLABORED. NO ACUTE DISTRESS NOTED.
--- NOTE | 2017-03-13 23:52 | NUR ---
RESTING IN BED WITH EYES CLOSED.
--- NOTE | 2017-03-14 03:06 | NUR ---
RESTING IN BED WITH EYES CLOSED. INC. CARE GIVEN.
--- NOTE | 2017-03-14 05:32 | NUR ---
RESTING IN BED WITH EYES CLOSED. NO S/S OF DISTRESS OBSERVED. SCD'S IN PLACE AND FUNCTIONING PROPERLY. INCONTINENT OF B/B. PERICARE PROVIDED. TURNED AND REPOSITIONED. CALL LIGHT AND OVERBED TABLE IN REACH.
--- NOTE | 2017-03-14 07:18 | NUR ---
LYING IN BED RESTING. ALERT AND ORIENTED TO PERSON AND PLACE. REORIENTED TO TIME AND SITUATION. DENIES ANY PAIN. NO S/SX OF DISTRESS. CALL LIGHT WITHIN REACH, BED LOW, ALARM ON AND WATER WITHIN REACH. WILL CONTINUE TO MONITOR
[2017-03-14 08:35] VITALS: BP 97/68
--- NOTE | 2017-03-14 10:07 | NUR ---
SPOKE WITH PATIENT MOTHER AND SHE IS CONCERNED WITH WHAT TO DO AT DISCHARGE. SHE TELLS ME THAT SHE IS UNABLE TO CARE FOR HER SON AND SHE IS UNSURE TO WHAT TO DO. SHE WILL ATTEND CARE TEAM MEETING AND WILL DO WHAT DR. LEON FEELS THAT SHE NEEDS TO. I TOLD HER TO BE LOOKING AT DIFFERENT SNF FOR POSSIBLE ADMISSION.WILL CONTINUE TO FOLLOW WITH PATIENT
--- NOTE | 2017-03-14 11:07 | NUR ---
IN THERAPY GYM WITH ANALI BOONE
--- NOTE | 2017-03-14 13:59 | NUR ---
Nutrition Follow Up: Pt is eating 33% meal avg on a regular diet. +BM 03/13/17. No new wt. Labs reviewed. Meds noted inlcuding Megace. Rec continue current diet. Rec weighing pt if possible. RD following.
--- NOTE | 2017-03-14 14:22 | NUR ---
SITTING UP IN W/C. DENIES ANY PAIN. W/C BRAKES LOCKED, CALL LIGHT WITHIN REACH, BOX ALARM ON. WILL CONTINUE TO MONITOR
[2017-03-14 20:00] VITALS: BP 136/74
--- NOTE | 2017-03-14 20:00 | NUR ---
PT IS RESTING IN BED WITH EYES OPEN. ALERT TO SELF. PT STATED TO TAKE AWAY HIS NEWSPAPER AND MENU. I ASKED IF HE WANTED TO FILL OUT HIS MENU, AND HE STATED: "NO". TELEMETRY UNIT IS ON AND INTACT. SCD'S PLACED ON PT AT THIS TIME. SR'S ARE UP X 3 IN BED. CALL LIGHT AND BEDSIDE TABLE ARE WITHIN EASY REACH.
--- NOTE | 2017-03-14 22:08 | NUR ---
PT IS RESTING QUIETLY IN BED WITH EYES CLOSED. RESPS ARE EVEN AND UNLABORED. NO ACUTE DISTRESS NOTED.
--- NOTE | 2017-03-15 01:32 | NUR ---
RESTING IN BED WITH EYES CLOSED. NOP S/S OF DISTRESS OBSERVED. HOB SLIGHTLY ELEVATED. RESP EVEN AND UNLABORED. CALL LIGHT AND OVERBED TABLE IN REACH.
--- NOTE | 2017-03-15 04:38 | NUR ---
RESTING IN BED WITH EYES CLOSED.
[2017-03-15 07:02] LABS: BASOPHILS 0.1 % (0-2); EOSINOPHILS 2.6 % (0-7); HEMATOCRIT 34.3 % (42.0-54.0); HEMOGLOBIN 10.9 g/dL (13.5-17.5); IMMATURE GRANULOCYTES 0.3 % (0-5); LYMPHOCYTES 7.6 % (15-50); MCH 29.1 pg (26.0-34.0); MCHC 31.8 g/dL (31.0-37.0); MCV 91.7 fL (80.0-100.0); MEAN PLATELET VOLUME 11.2 fL (7.4-10.4); NEUTROPHILS 79.4 % (40-80); PLATELET COUNT 283 10x3/uL (130-400); RBC 3.74 10x6/uL (4.20-6.10); RDW 15.2 % (11.5-14.5)
[2017-03-15 07:23] LABS: CALC OSMOLALITY 286 mosm/kg (275-300); CALCIUM 9.2 mg/dL (8.5-10.1); CARBON DIOXIDE 24.4 mmol/L (21.0-32.0); CHLORIDE - SERUM 105 mmol/L (98-107); GLUCOSE 97 mg/dL (74-106); POTASSIUM - SERUM 4.3 mmol/L (3.5-5.1); SODIUM 140 mmol/L (136-145); UREA NITROGEN 34 mg/dL (7-18); eGFR NON AFRICAN AMERICAN 80 mL/min (90-120)
[2017-03-15 07:41] LABS: WBC 8.8 10x3/uL (4.8-10.8)
[2017-03-15 08:14] VITALS: BP 136/79
--- NOTE | 2017-03-15 08:41 | NUR ---
PT AM MEDS ADMINISTERED. PT DENIES NEEDS AT THIS TIME.
--- NOTE | 2017-03-15 12:15 | NUR ---
PT EATING LUNCH, DENIES NEEDS. WCTM.
--- NOTE | 2017-03-15 17:15 | NUR ---
PT RESTING EYES CLOSED. PT WOKE UP TO EAT DINNER AND THEN PRMPLTY FELL BACK ASLEEP. WCTM.
--- NOTE | 2017-03-15 17:50 | NUR ---
CARE TEAM MEETING: REFERRAL WILL BE MADE TO [facility] OR [facility] FOR POSSIBLE ADMISSION WILL CONTINUE TO FOLLOW WITH PATIENT. TENETIVE DISCHARGE DATE IS 03/23/17
[2017-03-15 19:30] VITALS: BP 117/71
--- NOTE | 2017-03-15 19:30 | NUR ---
ASSESSMENT PER FLOW SHEET, VS OBTAINED PER DRAPERY CUTTER MACHINE, TELEMETRY IN PLACE, PT TALKS LIKE SOMEONE ELSE IS IN THE ROOM, PT DENIES ANY PAIN AT THIS TIME, BED IN LOW POSITION, SIDE RAILS X 2, CALL LIGHT IN REACH, BED ALARM ON AND WORKING PROPERLY
--- NOTE | 2017-03-15 20:34 | NUR ---
PT AWAKE, RECEIVING RESP TREATMENT AT THIS TIME
--- NOTE | 2017-03-15 21:08 | NUR ---
ADM 2100 MEDS PER MD ORDERS, SEE EMAR, WITH FRESH H20, PT DENIES NEEDS OR PAIN AT THIS TIME
--- NOTE | 2017-03-15 22:30 | NUR ---
PT RESTING WITH EYES CLOSED, RESP QUIET, NO DISTRESS NOTED, LEFT UNDISTURBED AT THIS TIME, BED IN LOW POSITION, SIDE RAILS X 2, CALL LIGHT IN REACH
--- NOTE | 2017-03-16 00:07 | NUR ---
PT RESTING WITH EYES CLOSED, RESP QUIET, NO DISTRESS NOTED, LEFT UNDISTURBED AT THIS TIME, BED IN LOW POSITION, SIDE RAILS X 2, CALL LIGHT IN REACH, BED ALARM ON AND WORKING PROPERLY
--- NOTE | 2017-03-16 06:06 | NUR ---
PT RESTING WITH EYES CLOSED, AROUSES TO SOFT VERBAL STIMUALTION, ADM 0600 MED PER MD ORDERS, SEE EMAR, PT INCONTINENT, PT CLEANED UP WITH WET WARM WASH WIPES, COMPLETE BEDDING AND GOWN CHANGED, FRESH H20 SERVED, RESP TO ROOM FOR TREATMENT
--- NOTE | 2017-03-16 06:44 | NUR ---
SHIFT REPORT TO DAY SHIFT
--- NOTE | 2017-03-16 08:09 | NUR ---
PT SITTING UP EATING BREAKFAST. ENCOURAGED PT TO EAT. WCTM.
[2017-03-16 08:51] VITALS: BP 124/64
--- NOTE | 2017-03-16 09:56 | NUR ---
PT AM MEDS ADMINISTERED. PT DENIES NEEDS. WCTM.
--- NOTE | 2017-03-16 18:18 | NUR ---
PT ASSISTED BACK INTO BED X 2 ASSIST. PT DENEIS NEEDS. WCTM.
--- NOTE | 2017-03-16 19:35 | NUR ---
REMOVED PATIENT'S SCRUB PANTS FOR THE NIGHT FOR COMFORT. APPLIED SCD'S. ALSO APPLIED CALMOSEPTINE OINTMENT TO REDDENED AREAS OF CENTRAL BUTTOCKS.
[2017-03-16 21:50] VITALS: BP 108/73
--- NOTE | 2017-03-16 21:50 | NUR ---
ASSESSMENT AND HS MEDS COMPLETE. EARLIER REPOSITIONED PATIENT. CURRENTLY HAS NO COMPLAINTS.
--- NOTE | 2017-03-17 00:20 | NUR ---
PATIENT IN BED, AFTER RECENT BEDBATH. SNORING LOUDLY.
--- NOTE | 2017-03-17 02:15 | NUR ---
REMAINS IN BED, EYES CLOSED.
--- NOTE | 2017-03-17 04:05 | NUR ---
REMAINS IN BED, AUDIBLE RESPIRATIONS ARE DEEP AND UNLABORED.
--- NOTE | 2017-03-17 05:45 | NUR ---
GAVE PATIENT SCHEDULED MEGACE PO. CLEANSED AND CHANGED PATIENT FROM VERY LARGE URINE INCONTINENCE. ALL LINENS AND PULL-UP WERE CHANGED. SCRUB TOP WAS PLACED ON PATIENT.
--- NOTE | 2017-03-17 07:41 | NUR ---
RESTING QUIETLY IN BED. CALL LIGHT IN REACH. BED IN LOWEST POSITION.
--- NOTE | 2017-03-17 08:15 | NUR ---
PT RESTING IN BED WITH EYES OPEN CALL LIGHT IN REACH WILL MONITER
[2017-03-17 08:18] VITALS: BP 143/81
--- NOTE | 2017-03-17 12:44 | NUR ---
PT UP IN WHEELCHAIR EATING LUNCH TOLERATING WELL WILL MONITER
--- NOTE | 2017-03-17 19:15 | NUR ---
IN BED, AWAKE. DENIES NEEDS.
--- NOTE | 2017-03-17 20:30 | NUR ---
RESTING QUEITLY IN BED, EYES CLOSED.
[2017-03-17 22:35] VITALS: BP 106/58
--- NOTE | 2017-03-17 22:35 | NUR ---
ASSESSMENT AND HS MEDS COMPLETE. APPLIED CALMOSEPTINE TO BUTTOCKS. PATIENT REMAINS DRY AT PRESENT. REPOSITIONED HIM HIGHER UP IN BED.
--- NOTE | 2017-03-18 00:15 | NUR ---
IN BED, EYES CLOSED. AUDIBLE RESPIRATIONS ARE DEEP. HAVING OCCASIONAL SHORT PERIODS OF APNEA.
--- NOTE | 2017-03-18 02:00 | NUR ---
RESTING IN BED, EYES CLOSED.
--- NOTE | 2017-03-18 04:35 | NUR ---
IN BED, EYES CLOSED. SNORING.
--- NOTE | 2017-03-18 05:35 | NUR ---
RESTING QUIETLY IN BED, EYES CLOSED.
--- NOTE | 2017-03-18 07:00 | NUR ---
CLEANSED PATINET AND CHANGED ALL HIS LINENS AFTER VERY LARGE URINE INCONTINENCE. PATIENT TOOK SCHEDULED MEGACE.
--- NOTE | 2017-03-18 08:10 | NUR ---
PT RESTING IN BED WITH EYES OPEN CALL LIGHT IN REACH WILL MONITER
[2017-03-18 09:02] VITALS: BP 133/70
--- NOTE | 2017-03-18 13:18 | NUR ---
PT RESTING IN BED WITH EYES OPEN CALL IN REACH NO PROBLEMS WILL MONITER
--- NOTE | 2017-03-18 13:21 | NUR ---
PT RESTING IN BED WITH EYES OPEN CALL LIGHT IN REACH NO PROBLEMS WILL MONITER
--- NOTE | 2017-03-18 14:02 | NUR ---
UP IN BED WITH EYES OPEN. PLEASANT AND COOPERATIVE. POOR APPETITE AT LUNCH. CONT. TO ENCOURAGE HIM TO EAT. REQUESTED TO GO TO TOILET EARLIER. UNABLE TO HAVE BM AT THAT TIME. REQUIRES 2 MAX ASSIST TO TRANSFER. ASSISTED BACK TO BED. CONTINUES TO TALK TO HIS INVISIBLE FRIEND. AND SWEARS AT STAFF. UNSURE IF HE KNOWS WHAT THE WORDS MEAN. STOPS SWEARING WHEN ASKED TO. INCONTINENT OF B/B AT TIMES. CALL LIGHT AND OVERBED TABLE IN REACH.
[2017-03-18 19:00] VITALS: BP 107/69
--- NOTE | 2017-03-18 19:20 | NUR ---
PATIENT IN BED, AWAKE. NO COMPLAINTS AT THIS TIME.
--- NOTE | 2017-03-18 20:20 | NUR ---
REMAINS IN BED, AWAKE. DENIES NEEDS.
--- NOTE | 2017-03-18 22:20 | NUR ---
ASSESSMENT AND MEDS COMPLETE. TOLD PATIENT I WILL BATHE AND SHAVE HIM SOON I FINISH WITH HIS ROOMMATE.
--- NOTE | 2017-03-18 23:25 | NUR ---
BATHED PATIENT AND SHAVED HIM AFTER A VERY LARGE VOLUME URINE INCONTINENCE. CAHNGED ALL BED LINENS, HIS PULL-UP BRIEF, AND PUT A FRESH SCRUB SHIRT ON HIM. CHANGED 2 TELEMETRY PATCHES. REPOSITIONED HIM HIGHER UP IN BED.
--- NOTE | 2017-03-19 00:35 | NUR ---
IN BED, EYES CLOSED. LOUD AUDIBLE RESPIRATIONS ARE REGULAR WITH SHORT PERIODS OF APNEA. HOB IS UP 30 DEGREES.
--- NOTE | 2017-03-19 02:20 | NUR ---
IN BED, EYES CLOSED.
--- NOTE | 2017-03-19 04:40 | NUR ---
RESTING IN BED. NO CHANGE IN RESPIRATORY PATTERN FROM PREVIOUS DESCRIPTION.
--- NOTE | 2017-03-19 05:55 | NUR ---
GAVE PATIENT SCHEDULED FRANCISCO. CLEANSED AND CHANGED HIM FROM LARGE URINE INCONTINENCE.
[2017-03-19 08:05] VITALS: BP 124/73
--- NOTE | 2017-03-19 08:45 | NUR ---
PT AM MEDS ADMINISTERED. PT DENIES NEEDS AT THIS TIME. WCTM.
--- NOTE | 2017-03-19 11:35 | NUR ---
PT HAD EPISODE OF INCONT URINE. PT BRIEF AND BLUE PADS CHANGED. PHYLICIA APPLIED TO LEFT INNER THIGH, GROIN AND BUTTOCK. WCTM.
--- NOTE | 2017-03-19 15:56 | NUR ---
PT RESTING, EYES CLOSED. BED LOW. CL IN REACH.
--- NOTE | 2017-03-19 18:24 | NUR ---
PT SITTING UP EATING DINNER, DENIES NEEDS.
[2017-03-19 19:00] VITALS: BP 112/71
--- NOTE | 2017-03-19 19:25 | NUR ---
REPOSITIONED PATIENT IN BED. LOWERED HOB. APPLIED SCD'S. DENIES NEEDS. REMOVED DINNER TRAY.
--- NOTE | 2017-03-19 21:35 | NUR ---
ASSESSMENT AND HS MEDS COMPLETE. CLEANSED AND CHANGED PATIENT FROM LARGE URINARY INCONTINENCE. REPOSITIONED HIM HIGHER UP IN BED FOR COMFORT.
--- NOTE | 2017-03-19 22:05 | NUR ---
RESTING QUIETLY, EYES CLOSED.
--- NOTE | 2017-03-20 00:35 | NUR ---
IN BED, EYES CLOSED. HOB UP 15 DEGREES. AUDIBLE RESPIRATIONS ARE DEEP WITH FREQUENT SHORT PERIODS OF APNEA.
--- NOTE | 2017-03-20 02:25 | NUR ---
AWOKE PATIENT. CLEANSED PATIENT AND CHANGED HIS PULL-UP BRIEF. DENIES NEEDS.
--- NOTE | 2017-03-20 05:25 | NUR ---
GAVE PATIENT SCHEDULED MEGACE. WILL RETURN CLOSER TO END OF SHIFT TO CHANGED PATIENT.
--- NOTE | 2017-03-20 06:40 | NUR ---
CLEANSED AND CHANGED PATIENT FROM SMALL URINARY INCONTINENCE. APPLIED CALMOSEPTINE TO BUTTOCKS. HE HAS NO COMPLAINTS AT THIS TIME.
--- NOTE | 2017-03-20 08:25 | NUR ---
PT AM MEDS ADMINISTERED. PT DENIES NEEDS. WCTM.
[2017-03-20 09:00] VITALS: BP 97/56
--- NOTE | 2017-03-20 12:15 | NUR ---
PT SITTING UP IN WHEELCHAIR EATING LUNCH, DENIES NEEDS. WCTM.
--- NOTE | 2017-03-20 12:58 | NUR ---
SPOKE WITH PATIENT MOTHER AND SHE WOULD LIKE A REFERRAL MADE TO [facility]. REFERRAL SENT WITH LUIZ CONTRERAS
--- NOTE | 2017-03-20 19:35 | NUR ---
PT. IN BED WITH HOB UP FOR COMFORT AND IS LEANING OVER ONTO HIS LEFT SIDE. ASSISTED PT. TO LYING STRAING IN BED SO NOT TO HURT HIS NECK. ASSESSMENT COMPLETED. NO VOICED NEEDS. ASSISTED WITH COMPLETING HIS MENU FOR TOMORROW. CALL LIGHT WITHIN REACH.
[2017-03-20 20:34] VITALS: BP 127/64
--- NOTE | 2017-03-20 23:31 | NUR ---
PT. HAS JUST RECEIVED HIS BED BATH AND IS READY FOR BED. POSITIONED TO COMFORT WITH HOB UP AND CALL LIGHT WITHIN REACH.
--- NOTE | 2017-03-21 03:20 | NUR ---
PT. IN BED WITH HOB UP FOR COMFORT. EYES CLOSED AND RESP. DEEP AND LOUD. CALL LIGHT WITHIN REACH.
--- NOTE | 2017-03-21 07:50 | NUR ---
SITTING UP IN BED ALERT AND ORIENTED TO PERSON AND SITUATION. REORIENTED TO TIME AND PLACE. DENIES ANY PAIN. NO S/SX OF ACUTE DISTRESS. CALL LIGHT AND PERSONAL ITEMS WITHIN REACH, BED ALARM ON, BED LOW, SR X2. WILL CONTINUE TO MONITOR
[2017-03-21 08:23] VITALS: BP 124/67
--- NOTE | 2017-03-21 10:04 | NUR ---
IN THERAPY GYM WITH OCCUPATIONAL THERAPY. DENIES ANY CONCERNS OR PAIN. NO S/SX OF ACUTE DISTRESS.
--- NOTE | 2017-03-21 10:13 | NUR ---
Nutrition Follow Up: Pt was asleep at the time of RD visit. Interview deferred. Pt is eating 56% meal avg on a regular diet. +BM 03/20/17. Labs reviewed. Meds noted including Megace. Rec continue current diet. Rec continue Megace. RD following.
--- NOTE | 2017-03-21 13:07 | NUR ---
TRANSFERRED FROM W/C TO BED WITH ASSISTANCE FROM ESTER SHIRLEY. DENIES ANY NEEDS OR PAIN. CALL LIGHT WITHIN REACH, BED ALARM ON, BED LOW, SR X2. WILL CONTINUE TO MONITOR.
--- NOTE | 2017-03-21 15:44 | NUR ---
SPOKE WITH MAR AT [facility] AND THEY REQUIRE A GERALDINE BEFORE PATIENT CAN BE ADMITTED THERE. GERALDINE HAS BEEN FAXED . NURSE FROM FACILITY WILL COME AND ASSESS PATIENT IN AM. WILL CONTINUE TO FOLLOW WITH PATIENT.
--- NOTE | 2017-03-21 16:43 | NUR ---
LYING IN BED EYES CLOSED RESTING. APPROPRIATE RISE AND FALL OF CHEST. NO S/SX OF RESPIRATORY DISTRESS. CALL LIGHT AND PERSONAL ITEMS WITHIN REACH, BED ALARM ON, SR X3, BED LOW. WILL CONTINUE TO MONITOR
--- NOTE | 2017-03-21 17:56 | NUR ---
SITTING UP EATING SUPPER. DENIES NEEDS. BED IN LOWEST POSITION.
--- NOTE | 2017-03-21 19:30 | NUR ---
PT. IN BED WITH HOB UP FOR COMFORT AND HAS NO VOICED NEEDS. NEW SHEET AND BLANKET PROVIDED FOR PT. PT. HAS FINISHED HIS ORAL CARE FOR THE NIGHT. ASSESSMENT COMPLETED. CALL LIGHT WITHIN REACH UPON MY LEAVING ROOM.
[2017-03-21 21:45] VITALS: BP 114/80
--- NOTE | 2017-03-21 23:20 | NUR ---
PT. IN BED WITH HOB UP FOR COMFORT. EYES CLOSED AND RESP. DEEP AND EVEN. CALL LIGHT REMAINS WITHIN REACH.
--- NOTE | 2017-03-22 03:12 | NUR ---
PT. IN BED WITH HOB UP FOR COMFORT WITH EYES CLOSED AND RESP. DEEP AND EVEN. CALL LIGHT WITHIN REACH.
[2017-03-22 06:14] LABS: BASOPHILS 0.3 % (0-2); EOSINOPHILS 2.6 % (0-7); HEMATOCRIT 35.7 % (42.0-54.0); HEMOGLOBIN 11.2 g/dL (13.5-17.5); IMMATURE GRANULOCYTES 0.9 % (0-5); LYMPHOCYTES 9.3 % (15-50); MCH 28.7 pg (26.0-34.0); MCHC 31.4 g/dL (31.0-37.0); MCV 91.5 fL (80.0-100.0); MEAN PLATELET VOLUME 11.3 fL (7.4-10.4); MONOCYTES 8.3 % (2-11); NEUTROPHILS 78.6 % (40-80); PLATELET COUNT 304 10x3/uL (130-400); RDW 15.2 % (11.5-14.5); WBC 7.9 10x3/uL (4.8-10.8)
[2017-03-22 06:28] LABS: CALC OSMOLALITY 281 mosm/kg (275-300); CALCIUM 9.8 mg/dL (8.5-10.1); CARBON DIOXIDE 25.2 mmol/L (21.0-32.0); CHLORIDE - SERUM 105 mmol/L (98-107); GLUCOSE 97 mg/dL (74-106); POTASSIUM - SERUM 3.9 mmol/L (3.5-5.1); SODIUM 140 mmol/L (136-145); UREA NITROGEN 20 mg/dL (7-18); eGFR NON AFRICAN AMERICAN 80 mL/min (90-120)
--- NOTE | 2017-03-22 07:58 | NUR ---
PT SITTINGUP IN BED EATING BREAKFAST, DENIES NEEDS. WCTM.
[2017-03-22 08:18] VITALS: BP 129/77
--- NOTE | 2017-03-22 10:02 | NUR ---
PT IN THERAPY, TOLERATING WELL, DENIES NEEDS. WCTM.
--- NOTE | 2017-03-22 16:29 | NUR ---
PT RESTING, EYES CLOSED BED LOW. CL IN REACH.
[2017-03-22 19:30] VITALS: BP 107/53
--- NOTE | 2017-03-22 19:30 | NUR ---
PT. IN BED WITH HOB UP FOR COMFORT WITH EYES CLOSED AND RESP. DEEP AND EVEN. PT. AWAKENS EASILY FOR ASSESSMENT. NO VOICED NEEDS AND HIS CALL LIGHT IS WITHIN REACH. SCD'S APPLIED TO BLE'S AND TURNED ON.
--- NOTE | 2017-03-22 23:20 | NUR ---
PT. IN BED WITH HOB UP FOR COMFORT WITH EYES CLOSED AND DEEP RESP. SCD'S IN PLACE WITHOUT ALARMS AND HIS CALL LIGHT IS WITHIN REACH.
--- NOTE | 2017-03-23 03:12 | NUR ---
PT. IN BED WITH HOB UP FOR COMFORT. EYES CLOSED AND RESP. DEEP AND LOUD. SCD'S REMAIN IN PLACE TO BLE'S WITHOUT ALARMS. CALL LIGHT WITHIN REACH.
[2017-03-23 07:52] VITALS: BP 129/73
--- NOTE | 2017-03-23 07:59 | NUR ---
RESTING QUIETLY IN BED. CALL LIGHT IN REACH. BED IN LOWEST POSITION.
--- NOTE | 2017-03-23 12:15 | NUR ---
PT EATING LUNCH, DENIES NEEDS. WCTM.
--- NOTE | 2017-03-23 19:15 | NUR ---
PM ROUNDS MADE, PT IS WATCHING TV, INFORMED PT THAT I WILL BE BACK IN A LITTLE WHILE TO DO ASSESSMENT, PT VERBALIZES UNDERSTANDING, DENIES NEEDS OR PAIN AT THIS TIME
[2017-03-23 20:16] VITALS: BP 122/76
--- NOTE | 2017-03-23 20:16 | NUR ---
ASSESSMENT PER FLOW SHEET, VS OBTAINED, ADM 2100 MEDS PO PER MD ORDERS, SEE EMAR, SERVED FRESH H20, PT DENIES NEEDS OR PAIN AT THIS TIME, BED IN LOW POSITION, SIDE RAILS X 2, CALL LIGHT IN REACH, BED ALARM ON AND WORKING PROPERLY
--- NOTE | 2017-03-23 21:10 | NUR ---
PT AWAKE, DENIES NEEDS OR PAIN AT THIS TIME
--- NOTE | 2017-03-23 22:00 | NUR ---
PT READY FOR BED, PT WET, PT CLEANED UP WITH WET WARM WIPES, ADULT UNDERWEAR CHANGED, PT POSITIONED IN BED, SCD'S PLACED ON AND WORKING PROPERLY, BED IN LOW POSITION, SIDE RAILS X 2, CALL LIGHT IN REACH, BED ALARM ON AND WORKING PROPERLY
--- NOTE | 2017-03-24 02:05 | NUR ---
PT RESTING WITY EYES CLOSED, RESP QUIET, NO DISTRESS NOTED, LEFT UNDISTURBED AT THIS TIME, BED IN LOW POSITION, SIDE RAILS X 2, CALL LIGHT IN REACH, BED ALARM ON AND WORKING PROPERLY
--- NOTE | 2017-03-24 04:15 | NUR ---
PT RESTING WITH EYES CLOSED, RESP QUIET, NO DISTRESS NOTED, LEFT UNDISTURBED AT THIS TIME, BED IN LOW POSITION, SIDE RAILS X 2, CALL LIGHT IN REACH, BED ALARM ON AND WORKING PROPERLY, SCD'S CONTINUE ON AND WORKING PROPERLY
--- NOTE | 2017-03-24 06:14 | NUR ---
PT RESTING WITH EYES CLOSED, AROUSES TO SOFT VERBAL STIMULATION, PT INCONTINENT, PT CLEAN UP WITH WET WARM WIPES, BRIEF CHANGED, SCD'S REAPPLIED AND WORKING PROPERLY, ADM 0700 MED PO PER MD ORDERS, SEE EMAR, PT DENIES NEEDS OR PAIN AT THIS TIME, BED IN LOW POSITION, SIDE RAILS X 2, CALL LIGHT IN REACH, BED ALARM ON AND WORKING PROPERLY
--- NOTE | 2017-03-24 06:53 | NUR ---
SHIFT REPORT TO DAY SHIFT
--- NOTE | 2017-03-24 07:38 | NUR ---
PT RESTING IN BED WITH EYES OPEN CALL LIGHT IN REACH WILL MONITER
[2017-03-24 08:53] VITALS: BP 140/74
--- NOTE | 2017-03-24 11:52 | NUR ---
PATIENT DISCHARGING TO [facility] VIA [facility]ILITY [facility]. MOTHER HAS BEEN NOTIFIED OF ADMISSION. MOTHER HAS GIVEN VERBAL OK FOR SNF CHOICE AND [facility] FORM EXPLAINED AND FILED IN CHART . AN APPOINTMENT WITH DR. TURNER WILL BE MADE AT TIME OF DISCHARGE FROM FACILITY.
[2017-03-24] MEDS ORDERED: MEGACE400 MG/10 PO (12:59)
[2017-03-24] MEDS ORDERED: NORVASC2.5 MG PO (13:02)
[2017-03-24] MEDS ORDERED: DIOVAN80 MG (13:03)
[2017-03-24] MEDS ORDERED: K-DUR20 MEQ PO (13:05)
[2017-03-24] MEDS ORDERED: MIRALAX17 GM PO (13:06)
[2017-03-24] MEDS ORDERED: CALMOSEPTINE OI71 GM TOPICAL (13:06)
--- NOTE | 2017-03-24 15:00 | NUR ---
PT DISCHARGED TO [facility] VIA WHEELCHAIR WITH [facility] FABRICATING [facility]OP HELPER REPORT CALLED TO [facility] DISCHARGE MEDS AND DISCHARGE SUMMARY SENT WITH PT WILL MONITER
--- NOTE | 2017-04-18 10:49 | DS ---
PATIENT:ELIZABETH HOLLY :54 MEDICAL RECORD: [id number] DISCHARGE SUMMARY ADMISSION DATE: 02/28/17 DISCHARGE DATE: 03/24/17 This is a discharge dated 03/24/2017 from inpatient rehab. PRIMARY DIAGNOSES: Decreased functional ability and ability to provide activities of daily living status post cerebrovascular accident. SECONDARY DIAGNOSES: 1. Cerebral palsy. 2. Seizure disorder. 3. Oropharyngeal dysphagia. 4. Hypertension. 5. Pneumonia. 6. Hyperlipidemia. 7. Hypokalemia. 8. Gastroesophageal reflux disease. 9. Anemia. HOSPITAL COURSE: Full H&P is located elsewhere on the chart on this 67-year-old male who was admitted to inpatient rehab for physical therapy and occupational therapy to improve gait, transfer skills, bed mobility, and activities of daily living to a modified independent level. He was evaluated by PT and OT and their plans of care were followed. He required nursing home care for observation and assessment, medication administration. He was seen by speech therapy for management of oropharyngeal dysphagia. Electrolytes were managed by protocol. He was somewhat cooperative with therapies with limited motivation to improve. Case management was involved for discharge planning. He was considered stable for discharge on 03/24/2017. DISCHARGE MEDICATIONS: As per discharge medication reconciliation. DISCHARGE DISPOSITION: The patient is discharged to [facility] nursing home facility. He will continue his current diet and level of activity. He will follow up with primary care as directed and will be seen by the primary physician at the care home. He will follow with the specialist as directed. At least 30 minutes was spent in this discharge activity. TRANSINT:[id number] Voice Confirmation ID: [id number] DOCUMENT ID: [id number] Dictated By: MANDY SARAVIA I have interviewed/examined the above patient and agree with these documented findings. DISCHARGE SUMMARY REPORT [id number] ELIZABETH HOLLY SCOTT MD at 1400 at 1049 CC: [id number] DICTATION DATE: 04/16/171844 ACTIVITIES CONCIERGE: 04/17/17 1110 DIS IN 03/24/17 [place] [id number] [place] [address]
== END 2017-03-24 16:38 | DRG 56 ==
LOC: D.REHAB 17:00
PROVIDERS: ADMIT Emergency Medicine
DX: I69.351 Hemiplegia and hemiparesis following cerebral infarction affecting right dominant side (principal); I63.9 Cerebral infarction, unspecified; J18.9 Pneumonia, unspecified organism; J90 Pleural effusion, not elsewhere classified; R13.12 Dysphagia, oropharyngeal phase; D72.829 Elevated white blood cell count, unspecified; I10 Essential (primary) hypertension; G80.9 Cerebral palsy, unspecified; G40.909 Epilepsy, unspecified, not intractable, without status epilepticus

== ENCOUNTER 2018-01-11 14:35 | Inpatient (IN) | payer MEDICARE ==
[~2018-01-11] VITALS: Ht 182.9 cm; Wt 70.1 kg
--- NOTE | ~2018-01-11 | CN ---
PATIENT NAME:ELIZABETH HOLLY MEDICAL RECORD: [id number] : 54 LOCATION:D.MS Motta2216 ADMIT DATE: 01/11/18 ACCOUNT: [id number] CONSULTING PHYSICIAN: PRATIBHA HERNANDEZ MD REFERRING PHYSICIAN: DAVID TURNER MD DATE OF CONSULTATION: 01/12/2018 IDENTIFYING DATA: The patient is 67 years old, and he was admitted to the hospital from a local senior care for acute mental status changes. CHIEF COMPLAINT: None. HISTORY OF PRESENT ILLNESS: The patient is not a good historian and there are limited records. He apparently was sent here from a local senior care, and I do not know how long he had been a resident there. He had acute mental status changes. He has been evaluated neurologically and had a head CT and there are no acute findings that would account for this. On interview, he is not cooperative. He is angry, rude and then is yelling when I ask him very simple non-confrontational questions. He also goes on to have an argument with someone not present in the room turning his head away from me, yelling half of a conversation with a person unseen. He denies angrily that he would seek to harm himself or others. He has been very agitated and has required p.r.n. medication for this agitation while on the medical floor. MENTAL STATUS EXAMINATION: The patient is awake, alert, and oriented to person only. His mood is angry. His affect is constricted. Thought processes are disorganized. Memory, concentration, and abstraction abilities could not be tested because of lack of cooperation. He denies he would seek to harm himself or others. He denies psychotic symptoms even though they are clearly witnessed. ASSESSMENT: Major depression with psychosis. PLAN: The patient needs to be transferred to acute psychiatric inpatient care once medically stabilized. His long-term prognosis is guarded. He is in need of intensive psychiatric evaluation and treatment. TRANSINT:[id number] Voice Confirmation ID: [id number] DOCUMENT ID: [id number] PRATIBHA HERNANDEZ MD at 1129 CC: [id number] DICTATION DATE: 01/12/18 1503 BANK MANAGER: 01/12/18 1535 ADM IN [address] [place] [address]
[~2018-01-11 14:35] MED LIST changes: +CALMOSEPTINE OI71 GM TOPICAL; +DIOVAN80 MG; +K-DUR20 MEQ PO; +MEGACE400 MG/10 PO; +MIRALAX17 GM PO; +NORVASC2.5 MG PO
[2018-01-11 14:50] VITALS: BP 80/52; BMI 20.4
[2018-01-11] MEDS ORDERED: BUSPAR5 MG PO (15:30)
[2018-01-11] MEDS ORDERED: CELEXA20 MG PO (15:31)
[2018-01-11] MEDS ORDERED: LISINOPRIL10 MG PO (15:33)
[2018-01-11] MEDS ORDERED: MOBIC7.5 MG PO (15:34)
[2018-01-11] MEDS ORDERED: OMEPRAZOLE20 M1 PO (15:35)
[2018-01-11 15:52] VITALS: BP 80/52
[2018-01-11 17:28] LABS: CREATININE - SERUM 1.4 mg/dL (0.6-1.3); T4 THYROXIN - FREE 1.43 ng/dL (0.76-1.46); T4 THYROXINE 8.7 ug/dL (4.7-13.3); THYROID STIMULATING HORMONE 2.16 uIU/mL (0.36-3.74)
[2018-01-12 04:00] VITALS: BP 101/61
[2018-01-12 05:35] LABS: APPEARANCE CLEAR (CLEAR); BILIRUBIN NEGATIVE (NEGATIVE); COLOR YELLOW (YELLOW); GLUCOSE NEGATIVE (NEGATIVE); KETONE NEGATIVE (NEGATIVE); NITRITE NEGATIVE (NEGATIVE); PROTEIN NEGATIVE (NEGATIVE); SPECIFIC GRAVITY 1.015 (1.005-1.020); UROBILINOGEN NORMAL (NORMAL)
[2018-01-12 06:23] LABS: BASOPHILS 0.1 % (0-2); EOSINOPHILS 3.3 % (0-7); HEMATOCRIT 38.7 % (42.0-54.0); HEMOGLOBIN 12.8 g/dL (13.5-17.5); IMMATURE GRANULOCYTES 0.5 % (0-5); LYMPHOCYTES 16.9 % (15-50); MCH 30.2 pg (26.0-34.0); MCHC 33.1 g/dL (31.0-37.0); MCV 91.3 fL (80.0-100.0); MEAN PLATELET VOLUME 11.1 fL (7.4-10.4); MONOCYTES 6.7 % (2-11); NEUTROPHILS 72.5 % (40-80); RBC 4.24 10x6/uL (4.20-6.10); RDW 13.7 % (11.5-14.5); WBC 7.6 10x3/uL (4.8-10.8)
[2018-01-12 06:31] LABS: ALBUMIN 3.2 g/dL (3.4-5.0); ANION GAP 11.4 mmol/L (8-16); BILIRUBIN - TOTAL 0.41 mg/dL (0.2-1.3); CALCIUM 9.2 mg/dL (8.5-10.1); CARBON DIOXIDE 25.6 mmol/L (21.0-32.0); CREATININE - SERUM 1.5 mg/dL (0.6-1.3); PROTEIN - SERUM 7.2 g/dL (6.4-8.2)
[2018-01-12 06:36] LABS: PLATELET COUNT 236 10x3/uL (130-400)
[2018-01-12 08:57] VITALS: BP 107/72
[2018-01-12 12:33] VITALS: BP 102/67
[2018-01-12 14:27] VITALS: Ht 182.9 cm; Wt 70.1 kg
[2018-01-12 20:00] VITALS: BP 105/59
[2018-01-13 04:00] VITALS: BP 111/68
[2018-01-13 07:05] LABS: BASOPHILS 0.3 % (0-2); EOSINOPHILS 4.3 % (0-7); HEMOGLOBIN 12.7 g/dL (13.5-17.5); IMMATURE GRANULOCYTES 0.4 % (0-5); LYMPHOCYTES 18.4 % (15-50); MCH 30.2 pg (26.0-34.0); MCHC 33.4 g/dL (31.0-37.0); MCV 90.5 fL (80.0-100.0); MEAN PLATELET VOLUME 10.5 fL (7.4-10.4); MONOCYTES 6.9 % (2-11); NEUTROPHILS 69.7 % (40-80); PLATELET COUNT 223 10x3/uL (130-400); RDW 13.5 % (11.5-14.5); WBC 7.5 10x3/uL (4.8-10.8)
[2018-01-13 07:23] LABS: FOLATE (FOLIC ACID) - SERUM 9.8 ng/mL (>3.0)
[2018-01-13 07:26] LABS: ANION GAP 11.5 mmol/L (8-16); BILIRUBIN - TOTAL 0.31 mg/dL (0.2-1.3); CARBON DIOXIDE 26.4 mmol/L (21.0-32.0); CREATININE - SERUM 1.2 mg/dL (0.6-1.3); POTASSIUM - SERUM 3.9 mmol/L (3.5-5.1); PROTEIN - SERUM 6.9 g/dL (6.4-8.2)
[2018-01-13 08:15] VITALS: BP 134/93; BMI 19.2
[2018-01-13 09:03] VITALS: BP 110/64
[2018-01-13] MEDS ORDERED: GEODON20 M1 IM (12:07)
== END 2018-01-13 18:28 | disposition short-term general hospital (02) | DRG 682 ==
LOC: D.MS 14:35
PROVIDERS: Family Medicine
DX: N17.9 Acute kidney failure, unspecified (principal); G93.41 Metabolic encephalopathy; F32.3 Major depressive disorder, single episode, severe with psychotic features; G40.909 Epilepsy, unspecified, not intractable, without status epilepticus; G80.9 Cerebral palsy, unspecified; K21.9 Gastro-esophageal reflux disease without esophagitis; R53.1 Weakness

== ENCOUNTER 2018-01-13 17:37 | Inpatient (IN) | payer MEDICARE ==
[~2018-01-13] VITALS: Ht 182.9 cm; Wt 75.9 kg
--- NOTE | ~2018-01-13 | PN ---
PATIENT:ELIZABETH HOLLY MEDICAL RECORD: [id number] LOCATION:ShaliniROXANAAnne MottaMorgan ADMISSION DATE: 01/13/18 PROGRESS NOTE DATE OF SERVICE: 01/25/2018 SUBJECTIVE: The patient's case was discussed with staff. He has no new complaint. OBJECTIVE: The patient is in good behavioral control. He is a little irritable when spoken to, but has very limited insight about his condition. He does tolerate his medicines well. ASSESSMENT: No change in diagnoses. PLAN: Supportive and educational interventions were made. Long-term prognosis is guarded. TRANSINT:[id number] Voice Confirmation ID: [id number] DOCUMENT ID: [id number] PRATIBHA HERNANDEZ MD at 1222 CC: [id number] DICTATION DATE: 01/25/18 1252 HANDKERCHIEF FOLDER: 01/25/18 1257 ADM IN [facility] [address] [place] [address]
--- NOTE | ~2018-01-13 | PN ---
PATIENT:ELIZABETH HOLLY MEDICAL RECORD: [id number] LOCATION:DM Winter ADMISSION DATE: 01/13/18 PROGRESS NOTE DATE OF SERVICE: 01/27/2018 SUBJECTIVE: The patient's case was discussed with staff. He has no new complaint. OBJECTIVE: The patient is in good behavioral control, although a little irritable. He has not been yelling, cursing or threatening staff, and it has been at least 2 days since staff has observed any psychotic symptoms. I am encouraged by his improvement. ASSESSMENT: No change in diagnoses. PLAN: The patient is not eating very well. He is 6 feet tall and weighs 167 pounds, which does not make him seriously underweight or actually even underweight at all, but this is still a low normal and obviously eating about half of what is presented to him in the long run will result in significant weight loss. ASSESSMENT: No change in diagnoses. PLAN: Current medicines and therapies have been reviewed and will be maintained. His long-term prognosis is guarded. TRANSINT:[id number] Voice Confirmation ID: [id number] DOCUMENT ID: [id number] PRATIBHA HERNANDEZ MD at 1326 CC: [id number] DICTATION DATE: 01/27/18 1318 SIGNAL TOWER DIRECTOR: 01/27/18 1429 ADM IN [id number] [place] [address]
--- NOTE | ~2018-01-13 | PN ---
PATIENT:ELIZABETH HOLLY MEDICAL RECORD: [id number] LOCATION:DM LoyaDelvin112 ADMISSION DATE: 01/13/18 PROGRESS NOTE DATE OF SERVICE: 01/29/2018 SUBJECTIVE: The patient's case was discussed with staff. He has no new complaint. OBJECTIVE: The patient denies intent to harm himself or others. He generally tolerates his medicines well. ASSESSMENT: No change in diagnoses. PLAN: Brief supportive and educational interventions were made. Long-term prognosis is guarded. TRANSINT:[id number] Voice Confirmation ID: [id number] DOCUMENT ID: [id number] PRATIBHA HERNANDEZ MD at 1329 CC: [id number] DICTATION DATE: 01/29/18 1442 FOLDED TOWEL MACHINE OPERATOR: 01/29/18 1448 ADM IN [place] [id number]
--- NOTE | ~2018-01-13 | PN ---
PATIENT:ELIZABETH HOLLY MEDICAL RECORD: [id number] LOCATION:DM LoyaDelvinMorgan ADMISSION DATE: 01/13/18 PROGRESS NOTE DATE OF SERVICE: 01/15/2018 SUBJECTIVE: The patient's case was discussed with staff. He has no new complaint. OBJECTIVE: The patient is in good behavioral control with limited insight about his condition. He does tolerate his medicines well. Eye contact is fair. ASSESSMENT: No change in diagnoses. PLAN: Current medicines and therapies have been reviewed and will be maintained. His long-term prognosis is guarded. I am going to discontinue his Celexa. TRANSINT:[id number] Voice Confirmation ID: [id number] DOCUMENT ID: [id number] PRATIBHA HERNANDEZ MD at 1434 CC: [id number] DICTATION DATE: 01/15/18 1534 SHAREHOLDER: 01/15/18 1635 ADM IN [address] [id number] [place] [address]
--- NOTE | ~2018-01-13 | DS ---
PATIENT:ELIZABETH HOLLY :54 MEDICAL RECORD: [id number] DISCHARGE SUMMARY ADMISSION DATE: 01/13/18 DISCHARGE DATE: 02/02/18 IDENTIFYING DATA: The patient is 67 years old and he was admitted to the hospital on a voluntary basis. CHIEF COMPLAINT: Psychotic symptoms. HISTORY OF PRESENT ILLNESS: The patient is a relatively young man with cerebral palsy and mental retardation. He has also had a stroke and currently is almost total care. He has been having ongoing hallucinations and aggressive behavior. The patient was referred to the behavioral unit for evaluation and treatment of these symptoms. HOSPITAL COURSE: The patient was admitted to the hospital and fully evaluated from both a medical, psychological, and social standpoint. He was treated with both mood stabilizing and antidepressant medications and did show improvement in his behaviors. He was subsequently transferred to a custodial. DISCHARGE DIAGNOSES: AXIS I: 1. Major depression with psychotic features. 2. Vascular dementia. AXIS II: Mild mental retardation. AXIS III: Status post stroke, hypertension, hyperlipidemia, gastroesophageal reflux disease, cerebral palsy, and seizure disorder. AXIS IV: Moderate stressors. AXIS V: Global assessment of functioning is 30. PLAN: At the time of discharge, the patient was in good behavioral control and did not represent an acute danger to himself or others. He was tolerating his medications well. Followup is to be with his primary care custodial physician. TRANSINT:[id number] Voice Confirmation ID: [id number] DOCUMENT ID: [id number] PRATIBHA HERNANDEZ MD at 1053 CC: [id number] DICTATION DATE: 02/09/18 1328 DEPUTY OF COUNTER INTELLIGENCE: 02/09/18 1334 DIS IN 02/02/18 [place] [id number] [place] [id number]
--- NOTE | ~2018-01-13 | PN ---
PATIENT:ELIZABETH HOLLY MEDICAL RECORD: [id number] LOCATION:DM LoyaDelvin112 ADMISSION DATE: 01/13/18 PROGRESS NOTE DATE OF SERVICE: 01/19/2018 SUBJECTIVE: The patient's case was discussed with staff. He has no new complaint. OBJECTIVE: The patient is irritable and attention seeking, but significantly less agitated. He does not appear to be over-sedated. ASSESSMENT: No change in diagnoses. PLAN: Current medicines and therapies have been reviewed, both will be maintained. Several nursing homes are considering him for placement and in consultation with his 89-year-old mother who is taking care of him all of his life. She is sad, but in agreement that she needs to make arrangements for his care once she is no longer living and she is certainly not able to care for him anymore given her advanced age. TRANSINT:[id number] Voice Confirmation ID: [id number] DOCUMENT ID: [id number] PRATIBHA HERNANDEZ MD at 1223 CC: [id number] DICTATION DATE: 01/19/18 1455 PATIENT ACCOUNT SPECIALIST: 01/19/18 1508 ADM IN [place] [id number] [place] [address]
--- NOTE | ~2018-01-13 | PN ---
PATIENT:ELIZABETH HOLLY MEDICAL RECORD: [id number] LOCATION:DM ÁngelaMorgan ADMISSION DATE: 01/13/18 PROGRESS NOTE DATE OF SERVICE: 01/22/2018 SUBJECTIVE: The patient's case was discussed with staff. He has no new complaint. OBJECTIVE: The patient is in good behavioral control with poor insight about his condition. He does tolerate his medicines well. ASSESSMENT: No change in diagnoses. PLAN: Supportive and educational interventions were made. Long-term prognosis is guarded. Overall, his behaviors are significantly better. TRANSINT:[id number] Voice Confirmation ID: [id number] DOCUMENT ID: [id number] PRATIBHA HERNANDEZ MD at 1406 CC: [id number] DICTATION DATE: 01/22/18 1140 OUTSIDE SALES ENGINEER: 01/22/18 1202 ADM IN [place] [address] [place] [address]
--- NOTE | ~2018-01-13 | PN ---
PATIENT:ELIZABETH HOLLY MEDICAL RECORD: [id number] LOCATION:MARICARMENAnne Motta112 ADMISSION DATE: 01/13/18 PROGRESS NOTE DATE OF SERVICE: 01/26/2018 SUBJECTIVE: The patient's case was discussed with staff. He has no new complaint. OBJECTIVE: The patient is in good behavioral control. He has not been aggressive. He is eating reasonably well. ASSESSMENT: No change in diagnoses. PLAN: Current medicines have been reviewed and will be maintained. I am going to drop the dose of his Klonopin slightly. His long-term prognosis is guarded. TRANSINT:[id number] Voice Confirmation ID: [id number] DOCUMENT ID: [id number] PRATIBHA HERNANDEZ MD at 1243 CC: [id number] DICTATION DATE: 01/26/18 1300 POSTAL SERVICE WINDOW CLERK: 01/26/18 1326 ADM IN [address] [place] [address]
--- NOTE | ~2018-01-13 | PN ---
PATIENT:ELIZABETH HOLLY MEDICAL RECORD: [id number] LOCATION:DM LoyaDelvinMorgan ADMISSION DATE: 01/13/18 PROGRESS NOTE DATE OF SERVICE: 01/23/2018 SUBJECTIVE: The patient's case was discussed with staff. He has no new complaint. OBJECTIVE: The patient is in good behavioral control with limited insight about his condition. He does tolerate his medicines well. Eye contact is fair. ASSESSMENT: No change in diagnoses. PLAN: Supportive and educational interventions were made. Long-term prognosis is guarded. The patient is significantly calmer than he has been. At this point, I do not think he is over sedated, but I am going to watch him for medication accumulation. TRANSINT:[id number] Voice Confirmation ID: [id number] DOCUMENT ID: [id number] PRATIBHA HERNANDEZ MD at 1339 CC: [id number] DICTATION DATE: 01/23/18 1428 RESPIRATORY MANAGER: 01/23/18 1435 ADM IN [place] [id number] [place] [address]
--- NOTE | ~2018-01-13 | PN ---
PATIENT:ELIZABETH HOLLY MEDICAL RECORD: [id number] LOCATION:DM Motta112 ADMISSION DATE: 01/13/18 PROGRESS NOTE DATE OF SERVICE: 01/31/2018 SUBJECTIVE: The patient's case was discussed with staff. He has not been aggressive today. ASSESSMENT: No change in diagnoses. PLAN: Supportive and educational interventions were made. The patient did require a p.r.n. Ativan last night because of agitation. He has not been aggressive today. TRANSINT:[id number] Voice Confirmation ID: [id number] DOCUMENT ID: [id number] PRATIBHA HERNANDEZ MD at 1336 CC: [id number] DICTATION DATE: 01/31/18 1328 MARINE PIPEFITTER: 01/31/18 1335 ADM IN [id number] [place] [address]
--- NOTE | ~2018-01-13 | PN ---
PATIENT:ELIZABETH HOLLY MEDICAL RECORD: [id number] LOCATION:DM LoyaDelvin112 ADMISSION DATE: 01/13/18 PROGRESS NOTE DATE OF SERVICE: 01/20/2018 SUBJECTIVE: The patient's case was discussed with staff. He has no new complaint. OBJECTIVE: The patient is in good behavioral control. He is severely impaired cognitively. He looks a little sleepy, but I am told that he has been up and awake through the morning prior to me seeing him. On the whole, his behaviors have dramatically improved. ASSESSMENT: No change in diagnoses. PLAN: Supportive and educational interventions were made. Long-term prognosis is guarded. TRANSINT:[id number] Voice Confirmation ID: [id number] DOCUMENT ID: [id number] PRATIBHA HERNANDEZ MD at 1045 CC: [id number] DICTATION DATE: 01/20/18 1245 MR TEACHER: 01/20/18 1256 ADM IN [address] [address] [place] [address]
--- NOTE | ~2018-01-13 | PN ---
PATIENT:ELIZABETH HOLLY MEDICAL RECORD: [id number] LOCATION:DM Motta112 ADMISSION DATE: 01/13/18 PROGRESS NOTE DATE OF SERVICE: 01/21/2018 SUBJECTIVE: The patient's case was discussed with staff. He has no new complaint. OBJECTIVE: The patient is in good behavioral control with limited insight about his condition. He does tolerate his medicines well. ASSESSMENT: No change in diagnoses. PLAN: The patient is sarcastic and irritable, but not behaviorally out of control as he has been. I am still getting reports of some psychotic interactions that he has. He denies them, but he is unreliable and I have not observed them. I am possibly going to increase his antipsychotic medication, but I am going to observe him on the current dose for another day. TRANSINT:[id number] Voice Confirmation ID: [id number] DOCUMENT ID: [id number] PRATIBHA HERNANDEZ MD at 1059 CC: [id number] DICTATION DATE: 01/21/18 1100 PEBBLE MILL OPERATOR: 01/21/18 1109 ADM IN [address] [place] [place] [id number]
--- NOTE | ~2018-01-13 | PN ---
PATIENT:ELIZABETH HOLLY MEDICAL RECORD: [id number] LOCATION:DM Motta112 ADMISSION DATE: 01/13/18 PROGRESS NOTE DATE OF SERVICE: 01/24/2018 SUBJECTIVE: The patient's case was discussed with staff. He has no new complaint. OBJECTIVE: The patient is in good behavioral control with limited insight about his condition. He tolerates his medicines well. He has been less irritable and more redirectable. ASSESSMENT: No change in diagnoses. PLAN: Current medicines will be maintained. We have not received approval from the office of long-term care for him to return to the care home, but I anticipate that will be received soon and I would think soon after that he could be discharged. TRANSINT:[id number] Voice Confirmation ID: [id number] DOCUMENT ID: [id number] PRATIBHA HERNANDEZ MD at 1234 CC: [id number] DICTATION DATE: 01/24/18 1405 LEGISLATORS: 01/24/18 1414 ADM IN [place] [address] [place] [address]
--- NOTE | ~2018-01-13 | PN ---
PATIENT:ELIZABETH HOLLY MEDICAL RECORD: [id number] LOCATION:MARICARMENAnne Motta112 ADMISSION DATE: 01/13/18 PROGRESS NOTE DATE OF SERVICE: 01/16/2018 SUBJECTIVE: The patient's case was discussed with staff. He has no new complaint. OBJECTIVE: The patient continues to be significantly disruptive. He has been yelling and angry with staff. He has required p.r.n. medication again today because of his agitated, insulting and threatening behaviors. ASSESSMENT: No change in diagnoses. PLAN: The patient will be maintained on current medicines and in addition to this I am going to start him on low dose of Klonopin at 0.5 mg twice daily. His long-term prognosis is guarded. TRANSINT:[id number] Voice Confirmation ID: [id number] DOCUMENT ID: [id number] PRATIBHA HERNANDEZ MD at 1301 CC: [id number] DICTATION DATE: 01/16/18 1454 CORRESPONDENCE REPRESENTATIVE: 01/16/18 1507 ADM IN [place] [id number] [place] [id number]
--- NOTE | ~2018-01-13 | PN ---
PATIENT:ELIZABETH HOLLY MEDICAL RECORD: [id number] LOCATION:[facility] ADMISSION DATE: 01/13/18 PROGRESS NOTE DATE OF SERVICE: 02/01/2018 SUBJECTIVE: The patient's case was discussed with staff. He has no new complaint. OBJECTIVE: The patient is in good behavioral control with limited insight about his condition. Unfortunately, yesterday, he was aggressive with staff and did require p.r.n. medication. ASSESSMENT: No change in diagnoses. PLAN: I am going to increase the patient's Klonopin to quarter of a milligram 3 times daily. Hopefully, this will assist with his behavior outbursts. His long-term prognosis is guarded. TRANSINT:[id number] Voice Confirmation ID: [id number] DOCUMENT ID: [id number] PRATIBHA HERNANDEZ MD at 1435 CC: [id number] DICTATION DATE: 02/01/18 1402 DROP WORKER: 02/01/18 1414 DIS IN 02/02/18 [place] [id number] [place] [address]
--- NOTE | ~2018-01-13 | PN ---
PATIENT:ELIZABETH HOLLY MEDICAL RECORD: [id number] LOCATION:DM Motta112 ADMISSION DATE: 01/13/18 PROGRESS NOTE DATE OF SERVICE: 01/28/2018 SUBJECTIVE: The patient's case was discussed with staff. He has no new complaint. OBJECTIVE: The patient denies intent to harm himself or others. He is in good behavioral control. Earlier today, he was a little agitated and required p.r.n. Ativan. I am concerned that I may have prematurely reduced his scheduled medicine, but we will observe him for another day before making a decision about whether or not to correct this possible change. TRANSINT:[id number] Voice Confirmation ID: [id number] DOCUMENT ID: [id number] PRATIBHA HERNANDEZ MD at 1326 CC: [id number] DICTATION DATE: 01/28/18 1253 MACHINE CHOCOLATE MOLDER: 01/28/18 1305 ADM IN [place] [address] [place] [id number]
--- NOTE | ~2018-01-13 | PSY ---
PATIENT NAME:ELIZABETH HOLLY MEDICAL RECORD: [id number] : 54 LOCATION:DM Motta1128 ADMISSION DATE: 01/13/18 ACCOUNT: [id number] PSYCHIATRIC EVALUATION DATE OF EVALUATION: 01/14/18 IDENTIFYING DATA: The patient is 67 years old and he is admitted to the hospital on a voluntary basis. CHIEF COMPLAINT: Hallucinations. HISTORY OF PRESENT ILLNESS: The patient is an unfortunate young man who has cerebral palsy and mental retardation. 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 He had presented to the hospital from a local detention, where he had been a long-term resident. He had had an acute mental status change. He had been evaluated neurologically without any significant new finding. When I saw him as a consultation, he was rude and yelling at me for very simple questions that were asked. He was also having an argument with someone in the room not present. He was clearly hallucinating and carrying on an imaginary conversation or argument. He denies that he would seek to harm himself or others. He has been quite agitated with the staff here and has required p.r.n. medications. PAST MEDICAL HISTORY: Significant for cerebral palsy, stroke, hyperlipidemia, hypertension, colon polyps, gastroesophageal reflux disease, and seizure disorder. PAST PSYCHIATRIC HISTORY: Significant for mental retardation. FAMILY HISTORY: Unknown. ALLERGIES: No known drug allergies. CURRENT MEDICATIONS: Include Avodart, Megace, Protonix, Pepcid, hydrochlorothiazide, Mobic, Celexa, Zestril, Norvasc, Flomax, MiraLAX, potassium, Geodon, Lipitor, p.r.n. Haldol, and Ativan. SOCIAL HISTORY: The patient is single. He has never been or functioned well socially or occupationally because of his mental retardation and cerebral palsy. Apparently, he has always been taken care of by his mother, who I am not sure if she has or if she has just gotten too old to care for him. MENTAL STATUS EXAMINATION: The patient is awake; alert; and oriented to person, place, and somewhat to time and situation. His mood is angry. His affect is constricted. Thought processes are circumstantial. Memory, concentration, and abstraction abilities are moderately impaired. He denies any active intent to harm himself or others as well as any overt psychotic symptoms. ASSETS: Stable living environment. LIABILITIES: Limited insight. DIAGNOSTIC IMPRESSION: AXIS I: 1. Major depression with psychotic features. 2. Vascular dementia. AXIS II: Mild mental retardation. AXIS III: Status post stroke, hypertension, hyperlipidemia, gastroesophageal reflux disease, cerebral palsy, seizure disorder. AXIS IV: Moderate stressors. AXIS V: Global assessment of functioning is 25. PLAN: At this time, the patient is admitted to the hospital secondary to psychotic symptoms associated with a mood disorder. He will be comprehensively evaluated from both medical, psychological, and social standpoint. He will be treated with both memory enhancing and antidepressant medications. His long-term prognosis is guarded. TRANSINT:[id number] Voice Confirmation ID: [id number] DOCUMENT ID: [id number] PRATIBHA HERNANDEZ MD at 1459 CC: [id number] DICTATION DATE: 01/14/18 1150 CORPORATE TRAFFIC MANAGER: 01/14/18 1508 ADM IN [place] [address] [place] [address]
--- NOTE | ~2018-01-13 | PN ---
PATIENT:ELIZABETH HOLLY MEDICAL RECORD: [id number] LOCATION:[facility] Motta112 ADMISSION DATE: 01/13/18 PROGRESS NOTE DATE OF SERVICE: 01/18/2018 SUBJECTIVE: The patient's case was discussed with staff. He has no new complaint. OBJECTIVE: The patient is in good behavioral control with limited insight about his condition. He does tolerate his medicines well. Eye contact is fair. ASSESSMENT: No change in diagnoses. PLAN: Current medicines and therapies have been reviewed and will be maintained. His behavior is better today. TRANSINT:[id number] Voice Confirmation ID: [id number] DOCUMENT ID: [id number] PRATIBHA HERNANDEZ MD at 1322 CC: [id number] DICTATION DATE: 01/18/18 1205 HORTICULTURAL MANAGER: 01/18/18 1216 ADM IN [place] [address] [place] [address]
--- NOTE | ~2018-01-13 | PN ---
PATIENT:ELIZABETH HOLLY MEDICAL RECORD: [id number] LOCATION:DM Ángela112 ADMISSION DATE: 01/13/18 PROGRESS NOTE DATE OF SERVICE: 01/30/2018 SUBJECTIVE: The patient's case was discussed with staff. He has no new complaint. OBJECTIVE: The patient has not been agitated today. He is eating very well and sleeping well. I anticipate that he can soon be transitioned to the snf. ASSESSMENT: No change in diagnoses. PLAN: Both the [facility] and [facility] are considering him. I do not have an answer from either one. I do not think he is quite ready to go, but I think he will be ready soon. TRANSINT:[id number] Voice Confirmation ID: [id number] DOCUMENT ID: [id number] PRATIBHA HERNANDEZ MD at 1234 CC: [id number] DICTATION DATE: 01/30/181914 PLANETARIUM SKY SHOW TECHNICIAN: 01/30/182007 ADM IN [facility] [address] [place] [address]
--- NOTE | ~2018-01-13 | PN ---
PATIENT:ELIZABETH HOLLY MEDICAL RECORD: [id number] LOCATION:DM Motta112 ADMISSION DATE: 01/13/18 PROGRESS NOTE DATE OF SERVICE: 01/17/2018 SUBJECTIVE: The patient's case was discussed with staff. He has no new complaint. OBJECTIVE: The patient denies intent to harm himself or others. He generally tolerates his medicines well. He is still irritable, but significantly better. ASSESSMENT: No change in diagnoses. PLAN: The patient will be started on Namenda at a dose of 2.5 mg twice daily. Namenda is being used to treat his underlying cognitive impairments. He will be monitored for clinical changes associated with its use. His long-term prognosis is guarded. TRANSINT:[id number] Voice Confirmation ID: [id number] DOCUMENT ID: [id number] PRATIBHA HERNANDEZ MD at 1053 CC: [id number] DICTATION DATE: 01/17/18 1431 CONTRACT ADMINISTRATIVE ASSISTANT: 01/17/18 1503 ADM IN [place] [address] [place] [id number]
[~2018-01-13 17:37] MED LIST changes: +BUSPAR5 MG PO; +CELEXA20 MG PO; +GEODON20 M1 IM; +LISINOPRIL10 MG PO; +OMEPRAZOLE20 M1 PO
[2018-01-13 18:07] VITALS: BP 97/52; BMI 22.7
[2018-01-13 19:21] VITALS: BP 94/58
[2018-01-14 07:57] LABS: CHOL - HDL RATIO 2.7 ratio (2.3-4.9); LDL-HDL RATIO 1.4 ratio (1.5-3.5); THYROID STIMULATING HORMONE 3.81 uIU/mL (0.36-3.74)
[2018-01-14 08:00] VITALS: BP 110/34
[2018-01-14 19:25] VITALS: BP 128/78
[2018-01-15 08:09] LABS: APPEARANCE CLEAR (CLEAR); BILIRUBIN NEGATIVE (NEGATIVE); COLOR YELLOW (YELLOW); GLUCOSE NEGATIVE (NEGATIVE); KETONE NEGATIVE (NEGATIVE); NITRITE NEGATIVE (NEGATIVE); PROTEIN NEGATIVE (NEGATIVE); SPECIFIC GRAVITY 1.015 (1.005-1.020); UROBILINOGEN NORMAL (NORMAL)
[2018-01-15 09:47] VITALS: BP 119/68
[2018-01-15 13:29] VITALS: BMI 22.6
[2018-01-15 19:34] VITALS: BP 100/63
[2018-01-16 06:16] LABS: FOLATE (FOLIC ACID) - SERUM 9.7 ng/mL (>3.0)
[2018-01-16 07:26] LABS: RAPID PLASMA REAGIN Non Reactive (Non Reactive)
[2018-01-16 08:00] VITALS: BP 142/78
[2018-01-16 22:02] VITALS: BP 94/47
[2018-01-17 09:00] VITALS: BP 119/79
[2018-01-17 19:06] VITALS: BP 103/61
[2018-01-18 10:35] VITALS: BP 126/83
[2018-01-19 21:17] VITALS: BP 109/67
[2018-01-20 10:13] VITALS: BP 113/89
[2018-01-20 21:12] VITALS: BP 129/83
[2018-01-21 09:29] VITALS: BP 106/70
[2018-01-21 19:27] VITALS: BP 112/71
[2018-01-22 08:00] VITALS: BP 123/82
[2018-01-22 19:17] VITALS: BP 98/48
[2018-01-23 08:00] VITALS: BP 110/70
[2018-01-23 20:15] VITALS: BP 118/61
[2018-01-24 08:00] VITALS: BP 127/73
[2018-01-24 10:53] VITALS: BP 127/73
[2018-01-24 19:53] VITALS: BP 98/53
[2018-01-25 11:17] VITALS: BP 118/69
[2018-01-25 22:29] VITALS: BP 126/58
[2018-01-26 08:54] VITALS: BP 111/65
[2018-01-26 11:19] VITALS: BP 111/65
[2018-01-26 20:13] VITALS: BP 101/56
[2018-01-27 08:00] VITALS: BP 121/86
[2018-01-27 20:23] VITALS: BP 142/68
[2018-01-28 08:00] VITALS: BP 130/77
[2018-01-28 19:16] VITALS: BP 104/74
[2018-01-29 07:00] VITALS: BP 117/68
[2018-01-29 19:58] VITALS: BP 132/79
[2018-01-30 08:00] VITALS: BP 109/75
[2018-01-30 19:58] VITALS: BP 110/62
[2018-01-31 08:35] VITALS: BP 128/76
[2018-01-31 20:00] VITALS: BP 124/76
[2018-02-01 10:52] VITALS: BP 120/52
[2018-02-01 15:37] VITALS: Ht 182.9 cm; Wt 75.9 kg
[2018-02-01 19:37] VITALS: BP 92/57
[2018-02-02 09:58] VITALS: BP 117/66
[2018-02-02] MEDS ORDERED: KLONOPIN0.5 MG PO (10:30)
[2018-02-02] MEDS ORDERED: GEODON20 MG PO (10:30)
[2018-02-02] MEDS ORDERED: NAMENDA5 MG PO (10:30)
[2018-02-02] MEDS ORDERED: PROTONIX40 MG PO (10:31)
[2018-02-02] MEDS ORDERED: SYNTHROID25 MCG PO (10:32)
[2018-02-02] MEDS ORDERED: SPECTAZOLE 1 %15 GM TOPICAL (10:33)
== END 2018-02-02 13:10 | DRG 885 ==
LOC: D.PSYCH 17:37
PROVIDERS: Psychiatry & Neurology Psychiatry
DX: F32.3 Major depressive disorder, single episode, severe with psychotic features (principal); F01.51 Vascular dementia, unspecified severity, with behavioral disturbance; I69.918 Other symptoms and signs involving cognitive functions following unspecified cerebrovascular disease; F79 Unspecified intellectual disabilities; E78.5 Hyperlipidemia, unspecified; I10 Essential (primary) hypertension; G80.9 Cerebral palsy, unspecified; K21.9 Gastro-esophageal reflux disease without esophagitis; G40.909 Epilepsy, unspecified, not intractable, without status epilepticus; E03.9 Hypothyroidism, unspecified; N40.0 Benign prostatic hyperplasia without lower urinary tract symptoms; M19.90 Unspecified osteoarthritis, unspecified site; L60.2 Onychogryphosis; L60.1 Onycholysis

== ENCOUNTER 2018-05-20 15:41 | Emergency (ER) | payer MEDICARE ==
[~2018-05-20] VITALS: Ht 182.9 cm; Wt 81.8 kg
[~2018-05-20 15:41] MED LIST changes: +GEODON20 MG PO; +KLONOPIN0.5 MG PO; +NAMENDA5 MG PO; +PROTONIX40 MG PO; +SPECTAZOLE 1 %15 GM TOPICAL; +SYNTHROID25 MCG PO
[2018-05-20 15:43] VITALS: Ht 182.9 cm; Wt 81.8 kg
[2018-05-20] MEDS ORDERED: DEPAKENE250 MG PO (15:48)
[2018-05-20] MEDS ORDERED: DEPAKOTE SPRIN125 MG PO (15:49)
[2018-05-20] MEDS ORDERED: DEPAKOTE250 MG PO (15:49)
[2018-05-20] MEDS ORDERED: MIRALAX17 GM PO (15:51)
[2018-05-20 19:40] VITALS: BP 145/81
== END 2018-05-20 19:40 ==
LOC: D.ER 15:41
DX: S00.83XA Contusion of other part of head, initial encounter (principal); W05.0XXA Fall from non-moving wheelchair, initial encounter; Y93.89 Activity, other specified; Y92.129 Unspecified place in nursing home as the place of occurrence of the external cause; S01.81XA Laceration without foreign body of other part of head, initial encounter; Z86.73 Personal history of transient ischemic attack (TIA), and cerebral infarction without residual deficits; G40.909 Epilepsy, unspecified, not intractable, without status epilepticus; G80.9 Cerebral palsy, unspecified; I10 Essential (primary) hypertension

== ENCOUNTER 2018-07-26 18:35 | Inpatient (IN) | payer MEDICARE ==
[2018-07-26] VITALS (17 sets, daily range): BP systolic 74–161; BP diastolic 44–98; BMI 18.5
[~2018-07-26] VITALS: Ht 182.9 cm; Wt 67.1 kg
[~2018-07-26 18:35] MED LIST changes: +DEPAKENE250 MG PO; +DEPAKOTE SPRIN125 MG PO; +DEPAKOTE250 MG PO
[2018-07-26 20:01] LABS: BASOPHILS 0.3 % (0-2); EOSINOPHILS 0.9 % (0-7); HEMATOCRIT 41.2 % (42.0-54.0); HEMOGLOBIN 13.4 g/dL (13.5-17.5); IMMATURE GRANULOCYTES 0.7 % (0-5); LYMPHOCYTES 5.3 % (15-50); MCH 31.1 pg (26.0-34.0); MCHC 32.5 g/dL (31.0-37.0); MCV 95.6 fL (80.0-100.0); MEAN PLATELET VOLUME 12.2 fL (7.4-10.4); MONOCYTES 7.7 % (2-11); NEUTROPHILS 85.1 % (40-80); PLATELET COUNT 209 10x3/uL (130-400); RBC 4.31 10x6/uL (4.20-6.10); RDW 15.7 % (11.5-14.5); WBC 13.8 10x3/uL (4.8-10.8)
[2018-07-26 20:09] LABS: APTT 23.7 SECONDS (22.8-39.4); INR 1.14 (0.85-1.17); PROTIME 14.1 SECONDS (11.6-15.0)
[2018-07-26 20:15] LABS: ALBUMIN 2.9 g/dL (3.4-5.0); ALKALINE PHOSPHATASE 56 U/L (46-116); ALT (SGPT) 14 U/L (10-68); BILIRUBIN - TOTAL 0.39 mg/dL (0.2-1.3); CALC OSMOLALITY 311 mosm/kg (275-300); CALCIUM 9.2 mg/dL (8.5-10.1); CHLORIDE - SERUM 111 mmol/L (98-107); CREATININE - SERUM 1.5 mg/dL (0.6-1.3); GLUCOSE 116 mg/dL (74-106); POTASSIUM - SERUM 4.8 mmol/L (3.5-5.1); PROTEIN - SERUM 6.2 g/dL (6.4-8.2); SODIUM 148 mmol/L (136-145); UREA NITROGEN 59 mg/dL (7-18); eGFR NON AFRICAN AMERICAN 50 mL/min (90-120)
[2018-07-26 20:26] LABS: CKMB 2.9 U/L (0.0-3.6); CREATINE KINASE 69 UL (21-232); TROPONIN-I 0.023 ng/mL (0.000-0.060)
--- NOTE | 2018-07-26 20:30 | NUR ---
16 FR INDWELLING ELDRIDGE CATHETER INSERTED, 10 ML BALLOON INFLATED. 40 ML URINE OUTPUT AT INSERTION. SAMPLE SENT TO LAB. STERILE FIELD MAINTAINED.
--- NOTE | 2018-07-26 21:00 | NUR ---
SECOND IV SITE ESTABLISHED AT THIS TIME. RIGHT SUBCLAVIAN PER DR. MARION. STERILE FIELD MAINITAINED.
--- NOTE | 2018-07-26 21:22 | NUR ---
PT REPORT CALLED TO JOYCELYN LOPES. ROOM 2315. PT STABLE AT THIS TIME.
[2018-07-26 21:49] LABS: APPEARANCE HAZY (CLEAR); COLOR YELLOW (YELLOW)
[2018-07-26 21:50] LABS: BACTERIA MODERATE /hpf (NONE SEEN); BILIRUBIN NEGATIVE (NEGATIVE); GLUCOSE NEGATIVE (NEGATIVE); KETONE NEGATIVE (NEGATIVE); NITRITE NEGATIVE (NEGATIVE); PROTEIN NEGATIVE (NEGATIVE); RED CELLS - URINE 0-5 /hpf (0-5); SPECIFIC GRAVITY 1.025 (1.005-1.020); UROBILINOGEN NORMAL (NORMAL)
--- NOTE | 2018-07-26 22:15 | NUR ---
Received patient from ER via stretcher to 2315, connected to monitor and assessment completed per flowsheet. Patient unresponsive to noxious stimuli, eyes 2mm with extremely sluggish response. ETT 7.5 @ 24cm secured. S1/S2 noted Sinus Tach on telemetry. Vent settings AC R-15 V-500 100% P-7 with O2 sat 100%, lung sounds clear bilateral upper and mid with diminished lower. Abdomen is flat/soft with bowel sounds active x4, non-tender. Hood secured, concentrated yellow urine noted. Decorticate posturing observed, stiffness all extremities with minor tremors noted. No voluntary movement noted, all pulses weak palpable with cap refill < 3 sec. Repositioned for comfort, see flowsheet for details. Will continue close monitoring.
[2018-07-27] VITALS (83 sets, daily range): BP systolic 80–136; BP diastolic 58–96; Ht 182.9 cm; Wt 67.1 kg
--- NOTE | 2018-07-27 01:00 | NUR ---
Patient sedated in bed on vent, decorticate posturing observed. Eyes 2mm with extremely sluggish response, no response to noxious stimuli. Titrating Norepinephrine to effect, no changes and will continue to monitor.
--- NOTE | 2018-07-27 03:10 | NUR ---
Reassessment completed per flowsheet, no changes noted from previous assessment. Patient unresponsive to noxious stimuli, eyes 2mm with sluggish response. ETT 7.0 @ 24cm secured, S1/S2 noted NSR on telemetry. Vent settings AC R-15 V-500 75% P-7 with O2 sat 97%, lung sounds clear upper and mid with diminished lower. All pulses weak palpable with cap refill < 3 sec, decorticate posturing observed with stiffness all extremities. Titrating Norepinephrine to effect, repositioned for comfort. Oral care/suctioning provided, thick secretions removed. No further needs at this time, see flowsheet for details. Will continue to montior.
--- NOTE | 2018-07-27 04:00 | NUR ---
Sedation vacation performed, patient opens eyes to voice but does not follow instructions. Patient posturing has relaxed, stiffness observed in all extremities. Sedation remains at 20 mcg/kg/min and will continue to monitor for changes.
[2018-07-27 11:21] LABS: BASOPHILS 0.1 % (0-2); EOSINOPHILS 0.1 % (0-7); HEMATOCRIT 36.7 % (42.0-54.0); IMMATURE GRANULOCYTES 0.4 % (0-5); LYMPHOCYTES 4.6 % (15-50); MCH 31.1 pg (26.0-34.0); MCHC 32.7 g/dL (31.0-37.0); MCV 95.1 fL (80.0-100.0); MONOCYTES 7.1 % (2-11); NEUTROPHILS 87.7 % (40-80); PLATELET COUNT 168 10x3/uL (130-400); RBC 3.86 10x6/uL (4.20-6.10); RDW 15.9 % (11.5-14.5); WBC 14.3 10x3/uL (4.8-10.8)
[2018-07-27 11:26] LABS: ANION GAP 13.8 mmol/L (8-16); CALCIUM 8.3 mg/dL (8.5-10.1); CARBON DIOXIDE 23.3 mmol/L (21.0-32.0); CREATININE - SERUM 1.2 mg/dL (0.6-1.3); POTASSIUM - SERUM 4.1 mmol/L (3.5-5.1)
--- NOTE | 2018-07-27 16:19 | NUR ---
0800 ASSESMENT COMPLETE SEE FLOW SHEET FOR FINDINGS.. PT IS SEDATED ON VENT .. CVL IN PLACE WITH LEVOPHED INFUSING FOR BP... 0900 PT MEDS GIVEN.. 1015 DR DORADO IN TO SEE PT WITH [place] HIS PRODUCT OPERATIONS ASSOCIATE.. STATED THEY HAD SPOKEN WITH PT MOTHER RE PT CONDITION.. 1035 DR MACEDO IN TO SEE PT.. UPDATE GIVEN .. 1045 LAB DRAWN FROM CVL BY NURSE 1200 MOTHER AND COUSIN IN TO SEE PT.. UPDATE GIVEN TO THEM.. PASSWORD OBTAINED FROM MOTHER FOR THE PT.. PASSWORD BLUE.. PHONE NUMBERS OBTAINED 1300 FAMILY GONE FROM BEDSIDE.. 1400 REPOSITIONED 1600 I AND O DONE..
--- NOTE | 2018-07-27 17:37 | NUR ---
1700 WITHOUT CHANGES.. REMAINS ON LEVOPHED AND SEDATED ON THE VENT
--- NOTE | 2018-07-27 17:50 | MORECARE ---
CASE MANAGEMENT DISCHARGE SUMMARY PATIENT: ELIZABETH HOLLY UNIT: [id number] ADM DATE: 07/26/18 AGE: 68 : 52 SEX: M ROOM/BED: D.2315 AUTHOR: MICAELA FOX PHYSICIAN: REFERRING PHYSICIAN: NYDIA WILKERSON MD DATE OF SERVICE: 07/27/18 Discharge Plan Patient Name: ELIZABETH HOLLY Facility: [facility]:[place] : 1950 Planned Disposition: Anticipated Discharge Date: Discharge Date: Expected LOS: Initial Reviewer: [email or web address] Initial Review Date: 07/26/2018 Generated: 07/27/18 6:50 pm Comments DCP- Discharge Planning Updated by [email or web address]: Milvia Hagen on 07/27/18 4:[address] CM attempted to visit with patient regarding discharge planning/ needs. Patient currently on vent no family available. Patient is a resident at [facility] . Mikael is maintenance person at facility [phone] fax [phone]. CM will continue to follow and assist as needed with discharge planning / needs Patient Name: ELIZABETH HOLLY Page [id number] at 1750 All edits/amendments must be made on the electronic document DICTATION DATE: 07/27/181749 ELECTROMYOGRAPHIC TECHNICIAN: ESTER 07/27/181749 RPT#: [id number] VT DATE: STATUS: ADM IN [place] [id number] [place] [address] END OF REPORT
--- NOTE | 2018-07-27 20:00 | NUR ---
SHIFT ASSESSMENT COMPLETE, PER NURSING FLOWSHEET. PATIENT REPOSITIONED, ORAL CARE PROVIDED
--- NOTE | 2018-07-27 21:00 | NUR ---
PATIENT REPOSITIONED, REMAINS IN BUE SOFT WRIST RESTRAINTS, CONTINUE POC
--- NOTE | 2018-07-27 23:00 | NUR ---
RE-ASSESSENT COMPLETE, PER NURSING FLOWSHEET. PATIENT REPOSITIONED, ORAL CARE PROVIDED, NO OTHER NEEDS VOICED OR NOTED
[2018-07-28] VITALS (42 sets, daily range): BP systolic 86–153; BP diastolic 44–105
[2018-07-28 05:17] LABS: HEMATOCRIT 32.9 % (42.0-54.0); HEMOGLOBIN 10.7 g/dL (13.5-17.5); IMMATURE GRANULOCYTES 0.3 % (0-5); MCH 30.9 pg (26.0-34.0); MCHC 32.5 g/dL (31.0-37.0); MCV 95.1 fL (80.0-100.0); MEAN PLATELET VOLUME 11.9 fL (7.4-10.4); PLATELET COUNT 145 10x3/uL (130-400); RBC 3.46 10x6/uL (4.20-6.10); RDW 15.8 % (11.5-14.5); WBC 13.4 10x3/uL (4.8-10.8)
[2018-07-28 05:35] LABS: CALC OSMOLALITY 301 mosm/kg (275-300); CALCIUM 8.5 mg/dL (8.5-10.1); CHLORIDE - SERUM 113 mmol/L (98-107); GLUCOSE 79 mg/dL (74-106); SODIUM 148 mmol/L (136-145); UREA NITROGEN 37 mg/dL (7-18); eGFR NON AFRICAN AMERICAN 79 mL/min (90-120)
[2018-07-28 05:37] LABS: POTASSIUM - SERUM 3.4 mmol/L (3.5-5.1)
--- NOTE | 2018-07-28 07:00 | NUR ---
REC'D LEFT SIDE, SEDATED W/PROPOFOL ON VENT, NAD
--- NOTE | 2018-07-28 08:15 | NUR ---
ASSESSED, VSS- TITRATING LEVO DOWN
[2018-07-28 09:09] LABS: LYMPHOCYTES 4 % (15-50); MONOCYTES 6 % (2-11); NEUTROPHILS 64 % (40-80)
[2018-07-28 09:10] LABS: PLATELET ESTIMATE NORMAL
--- NOTE | 2018-07-28 09:15 | NUR ---
DR MACEDO AT BEDSIDE, PROPOFOL OFF
--- NOTE | 2018-07-28 12:30 | NUR ---
REASSESED- CHANGES DOCUMENTED, TOLERATING PS TRIAL W/O DISTRESS, AWAKE/ ALERT
--- NOTE | 2018-07-28 16:20 | NUR ---
EXTUBATED TO 3L/NC PER RT, REASSESSED
--- NOTE | 2018-07-28 16:23 | NUR ---
PER DR. ECHAVARRIA ORDER PATIENT EXTUBATED TO 3L/NC
--- NOTE | 2018-07-28 17:30 | NUR ---
INCONT MOD BROWN SOFT FORMED STOOL. COCCYX REDDENED- SACRAL DRSG REPLACED
--- NOTE | 2018-07-28 19:30 | NUR ---
SHIFT ASSESSMENT COMPLETE, PER NURSING FLOWSHEET, PATIENT REPOSITIONED, ORAL CARE PROVIDED, NO NEEDS COMMUNICATED TO THIS NURSE AT THIS TIME
--- NOTE | 2018-07-28 21:00 | NUR ---
PATIENT REPOSITONED, ORAL CARE PROVIDED, CONTINUE POC
--- NOTE | 2018-07-28 23:00 | NUR ---
RE-ASSESSMENT COMPLETE PER NURSING FLOWSHEET, PATIENT REPOSITIONED, C/L IN HAND
[2018-07-29] VITALS (13 sets, daily range): BP systolic 98–168; BP diastolic 50–98
--- NOTE | 2018-07-29 01:00 | NUR ---
PATIENT REPOSITIONED, ELDRIDGE CARE PROVIDED, WILL CONTINUE TO MONITOR
--- NOTE | 2018-07-29 03:00 | NUR ---
REASSESSMENT COMPLETE PER NURSING FLOWSHEE, PATIENT REPOSITIONED, ORAL CARE PROVIDED, CONTINUE POC
--- NOTE | 2018-07-29 05:00 | NUR ---
PARTIAL LINEN CHANGE FOR THIS PATIENT SECONDARY TO INCONTINENT BOWEL EPISODE, METICULOUS BETHANIE CARE PROVIED, MEPILEX REPLACED TO COCCYX
[2018-07-29 06:47] LABS: BASOPHILS 0.3 % (0-2); EOSINOPHILS 2.3 % (0-7); HEMATOCRIT 31.2 % (42.0-54.0); HEMOGLOBIN 10.1 g/dL (13.5-17.5); IMMATURE GRANULOCYTES 0.5 % (0-5); LYMPHOCYTES 7.6 % (15-50); MCH 30.7 pg (26.0-34.0); MCHC 32.4 g/dL (31.0-37.0); MCV 94.8 fL (80.0-100.0); MONOCYTES 5.9 % (2-11); NEUTROPHILS 83.4 % (40-80); RBC 3.29 10x6/uL (4.20-6.10); RDW 15.6 % (11.5-14.5)
[2018-07-29 06:50] LABS: PLATELET COUNT 111 10x3/uL (130-400); WBC 7.8 10x3/uL (4.8-10.8)
--- NOTE | 2018-07-29 07:00 | NUR ---
REC'D RT SIDE, EYES CLOSED , RESP EVEN/UNLABORED
[2018-07-29 07:22] LABS: CALC OSMOLALITY 300 mosm/kg (275-300); CALCIUM 8.5 mg/dL (8.5-10.1); CARBON DIOXIDE 19.9 mmol/L (21.0-32.0); CHLORIDE - SERUM 116 mmol/L (98-107); GLUCOSE 63 mg/dL (74-106); POTASSIUM - SERUM 3.5 mmol/L (3.5-5.1); SODIUM 149 mmol/L (136-145); UREA NITROGEN 31 mg/dL (7-18); eGFR NON AFRICAN AMERICAN 79 mL/min (90-120)
--- NOTE | 2018-07-29 08:30 | NUR ---
ASSESSED, C/O SORE THROAT, SPEECH DIFFICULT TO UNDERSTAND, REPOSITIONED, AFVSS
--- NOTE | 2018-07-29 12:00 | NUR ---
REPOSITIONED, AFVSS IN NAD, DR MACEDO IN- ORDERS REC'D
--- NOTE | 2018-07-29 13:55 | NUR ---
INCONT MOD SOFT FORMED BROWN STOOL. NOTIFIED MOTHER OF TRANSFER PLANS TO RM [id number].
--- NOTE | 2018-07-29 14:00 | NUR ---
REPORT CALLED TO Garrett WILLOUGHBY RN [place] [id number].
--- NOTE | 2018-07-29 14:04 | NUR ---
RECEIVED PT FROM ICU. PT STABLE AND RESTING IN BED. NO NEEDS AT THIS TIME.
[2018-07-30] VITALS: BP 130/79
[2018-07-30 03:00] VITALS: BP 128/65
--- NOTE | 2018-07-30 07:30 | NUR ---
MORNING ASSESSMENT COMPLETE. SEE ASSESSMENT FLOWSHEET FOR FURTHER DETAILS. PT LYING IN BED. DENIES NEEDS AT THIS TIME. CL IN REACH. TOOK OUT L HAND PIV. MEPILEX DRSG TO BUTTOCK.
[2018-07-30 08:44] VITALS: BP 144/96
[2018-07-30 12:38] VITALS: BP 138/79
--- NOTE | 2018-07-30 15:06 | MORECARE ---
CASE MANAGEMENT DISCHARGE SUMMARY PATIENT: ELIZABETH HOLLY UNIT: [id number] ADM DATE: 07/26/18 AGE: 68 : 52 SEX: M ROOM/BED: D.2205 AUTHOR: MICAELA FOX PHYSICIAN: REFERRING PHYSICIAN: NYDIA WILKERSON MD DATE OF SERVICE: 07/30/18 Discharge Plan Patient Name: ELIZABETH HOLLY Facility: [facility]:[place] : 1950 Planned Disposition: Nursing Facility [facility] Anticipated Discharge Date: Discharge Date: Expected LOS: Initial Reviewer: [email or web address] Initial Review Date: 07/26/2018 Generated: 07/30/18 4:06 pm Comments DCP- Discharge Planning Updated by [email or web address]: Carisa Ambriz on 07/30/18 1:[address] attempted to see patient to assess discharge planning needs. Patient is unable to answer questions. I also attempted to call Mikael and did not get an answer. Will attempt to call again at a later time. Patient appears to be a total care patient. CM to follow and assist as needed DCP- Discharge Planning Updated by [email or web address]: Milvia Hagen on 07/27/18 3:[address] CM attempted to visit with patient regarding discharge planning/ needs. Patient currently on vent no family available. Patient is a resident at [facility] . Mikael is personal finance instructor at facility [phone] fax [phone]. CM will continue to follow and assist as needed with discharge planning / needs Last DP export: 07/27/18 3:50 pm Patient Name: ELIZABETH HOLLY Page [id number] at 1506 All edits/amendments must be made on the electronic document DICTATION DATE: 07/30/18 1506 FISH CLEANER: ESTER 07/30/18 1506 RPT#: [id number] DC DATE: STATUS: ADM IN [facility] [address] [place] [address] END OF REPORT
[2018-07-30 17:17] VITALS: BP 140/88
[2018-07-30 21:18] VITALS: BP 125/80
--- NOTE | 2018-07-31 04:30 | NUR ---
I have reviewed this patient and I concur with the Shift Assessment completed by the Licensed Practical Nurse today this shift.
[2018-07-31 05:49] VITALS: BP 139/73
--- NOTE | 2018-07-31 07:30 | NUR ---
REC'D IN BED AWAKE AND ALERT TO NAME ONLY. RESP EVEN AND UNLABORED WITH NO DISTRESS NOTED. CAN EXPRESS SOME NEEDS AND WANTS. PT DOES YELL OUT FROM TIME TO TIME. ASSESSMENT COMPLETED. C/L IN REACH AT BEDSIDE.
[2018-07-31 09:46] VITALS: BP 132/84
[2018-07-31 13:25] LABS: BASOPHILS 0.4 % (0-2); EOSINOPHILS 3.4 % (0-7); HEMATOCRIT 33.2 % (42.0-54.0); IMMATURE GRANULOCYTES 2.7 % (0-5); MCH 30.7 pg (26.0-34.0); MCHC 33.1 g/dL (31.0-37.0); MCV 92.7 fL (80.0-100.0); MEAN PLATELET VOLUME 11.6 fL (7.4-10.4); MONOCYTES 8.2 % (2-11); NEUTROPHILS 75.3 % (40-80); RBC 3.58 10x6/uL (4.20-6.10); RDW 14.9 % (11.5-14.5)
[2018-07-31 13:26] LABS: PLATELET COUNT 147 10x3/uL (130-400)
[2018-07-31 13:41] LABS: CALC OSMOLALITY 287 mosm/kg (275-300); CALCIUM 8.5 mg/dL (8.5-10.1); CARBON DIOXIDE 23.6 mmol/L (21.0-32.0); CHLORIDE - SERUM 110 mmol/L (98-107); CREATININE - SERUM 0.7 mg/dL (0.6-1.3); GLUCOSE 89 mg/dL (74-106); POTASSIUM - SERUM 3.5 mmol/L (3.5-5.1); SODIUM 145 mmol/L (136-145); UREA NITROGEN 13 mg/dL (7-18); eGFR NON AFRICAN AMERICAN > 90 mL/min (90-120)
[2018-07-31 15:20] VITALS: BP 145/85
--- NOTE | 2018-07-31 16:48 | NUR ---
I have reviewed this patient and I concur with the Shift Assessment completed by the Licensed Practical Nurse today this shift.
[2018-07-31 17:24] VITALS: BP 167/81
[2018-07-31 21:37] VITALS: BP 135/57
[2018-08-01 01:33] VITALS: BP 140/76
--- NOTE | 2018-08-01 01:38 | NUR ---
REC'D. CHGE. OF SHIFT LYING ON RT. SIDE YELLING COME HERE.STATES YOU COME BUT YOU DON'T STAY. CONFUSED AND DISORIENTED.ELDRIDGE PATENT AND DRAINING BROWNISH CONCENTRATED URINE. WILL CONTINUE TO MONITOR FOR ANY CHGES AND FOLLOW CURRENT PLAN OF CARE.
[2018-08-01 04:18] LABS: BASOPHILS 0.3 % (0-2); EOSINOPHILS 4.1 % (0-7); HEMATOCRIT 32.2 % (42.0-54.0); HEMOGLOBIN 10.9 g/dL (13.5-17.5); IMMATURE GRANULOCYTES 2.5 % (0-5); LYMPHOCYTES 16.2 % (15-50); MCH 31.1 pg (26.0-34.0); MCHC 33.9 g/dL (31.0-37.0); MEAN PLATELET VOLUME 11.2 fL (7.4-10.4); MONOCYTES 7.3 % (2-11); NEUTROPHILS 69.6 % (40-80); PLATELET COUNT 136 10x3/uL (130-400); WBC 6.3 10x3/uL (4.8-10.8)
[2018-08-01 04:30] LABS: CALC OSMOLALITY 279 mosm/kg (275-300); CALCIUM 8.5 mg/dL (8.5-10.1); CARBON DIOXIDE 24.3 mmol/L (21.0-32.0); CHLORIDE - SERUM 109 mmol/L (98-107); CREATININE - SERUM 0.7 mg/dL (0.6-1.3); GLUCOSE 84 mg/dL (74-106); POTASSIUM - SERUM 3.1 mmol/L (3.5-5.1); SODIUM 141 mmol/L (136-145); UREA NITROGEN 12 mg/dL (7-18); eGFR NON AFRICAN AMERICAN > 90 mL/min (90-120)
[2018-08-01 04:48] VITALS: BP 134/60
--- NOTE | 2018-08-01 04:48 | NUR ---
I have reviewed this patient and I concur with the Shift Assessment completed by the Licensed Practical Nurse today this shift.
--- NOTE | 2018-08-01 07:30 | NUR ---
REC'D IN BED AWAKE AND ALERT TO SELF. RESP EVEN AND UNLABORED WITH NO DISTRESS NOTED. CAN VOICE SOME NEEDS AND WANTS. ELDRIDGE INTACT AND DRAINING WITH CATH CARE GIVEN THIS SHIFT. ASSESSMENT COMPLETED. C/L IN REACH AT BEDSIDE.
[2018-08-01 08:45] VITALS: BP 127/80
[2018-08-01 12:40] VITALS: BP 154/89
[2018-08-01 16:45] VITALS: BP 149/87
--- NOTE | 2018-08-01 16:47 | NUR ---
I have reviewed this patient and I concur with the Shift Assessment completed by the Licensed Practical Nurse today this shift.
[2018-08-01 21:47] VITALS: BP 146/89
[2018-08-02 01:16] VITALS: BP 138/80
--- NOTE | 2018-08-02 02:15 | NUR ---
REC'D. CHGE OF SHIFT.AWAKE BUTT CONFUSED AND DISORIENTED.ELDRIDGE PATENT AND DRAINING WILLIAM CONCENTRATED URINE.STATES I'M WATCHING NASIR ON TV.WILL CONTINUE TO MONITOR FOR ANY CHGES. AND FOLLOW CURRENT PLAN OF CARE
[2018-08-02 04:37] VITALS: BP 168/101
--- NOTE | 2018-08-02 07:50 | NUR ---
PT RESTING IN BED WATCHING TV. NO S/S OF ACUTE DISTRESS. CL IN PLACE.
--- NOTE | 2018-08-02 07:51 | NUR ---
I have reviewed this patient and I concur with the Shift Assessment completed by the Licensed Practical Nurse today this shift.
[2018-08-02 10:16] LABS: CALC OSMOLALITY 280 mosm/kg (275-300); CALCIUM 8.4 mg/dL (8.5-10.1); CARBON DIOXIDE 24.7 mmol/L (21.0-32.0); CHLORIDE - SERUM 110 mmol/L (98-107); CREATININE - SERUM 0.7 mg/dL (0.6-1.3); GLUCOSE 94 mg/dL (74-106); POTASSIUM - SERUM 3.1 mmol/L (3.5-5.1); SODIUM 142 mmol/L (136-145); eGFR NON AFRICAN AMERICAN > 90 mL/min (90-120)
[2018-08-02 10:19] LABS: UREA NITROGEN 7 mg/dL (7-18)
[2018-08-02 10:39] VITALS: BP 135/97
--- NOTE | 2018-08-02 10:49 | NUR ---
NUTRITION F/U PT NOW ASSESSED WITH SEVERE MALNUTRITION OF ACUTE ILLNESS R/T DX, PMH AEB 1)=/< 50% INTAKE EST ENERGY NEEDS =/> 5 DAYS 2)SUBCUTANEOUS FAT/MUSCLE LOSS(SEVERE) PUREED, HONEY THICK LIQUID DIET WITH ~25% INTAKE BREAKFAST. PT IS FEEDER. WILL CONTINUE TO PROVIDE CURRENT DIET, MONITOR PT PROGRESS. RD FOLLOWING
[2018-08-02 12:35] LABS: BASOPHILS 0.5 % (0-2); HEMATOCRIT 31.7 % (42.0-54.0); HEMOGLOBIN 10.5 g/dL (13.5-17.5); IMMATURE GRANULOCYTES 1.9 % (0-5); MCH 30.6 pg (26.0-34.0); MCHC 33.1 g/dL (31.0-37.0); MCV 92.4 fL (80.0-100.0); MEAN PLATELET VOLUME 10.4 fL (7.4-10.4); MONOCYTES 8.2 % (2-11); NEUTROPHILS 74.4 % (40-80); PLATELET COUNT 161 10x3/uL (130-400); RBC 3.43 10x6/uL (4.20-6.10); RDW 15.2 % (11.5-14.5); WBC 6.5 10x3/uL (4.8-10.8)
[2018-08-02 13:03] VITALS: BP 154/91
--- NOTE | 2018-08-02 14:35 | MORECARE ---
CASE MANAGEMENT DISCHARGE SUMMARY PATIENT: ELIZABETH HOLLY UNIT: [id number] ADM DATE: 07/26/18 AGE: 68 : 52 SEX: M ROOM/BED: D.2205 AUTHOR: RUDDYDOC PHYSICIAN: REFERRING PHYSICIAN: NYDIA WILKERSON MD DATE OF SERVICE: 08/02/18 Discharge Plan Patient Name: ELIZABETH HOLLY Facility: [facility]:[place] : 1950 Planned Disposition: Nursing Facility [facility] Cert Anticipated Discharge Date: Discharge Date: Expected LOS: Initial Reviewer: [email or web address] Initial Review Date: 07/26/2018 Generated: 08/02/18 3:35 pm Comments DCP- Discharge Planning Updated by [email or web address]: Carisa Ambriz on 08/02/18 1:[address] PATIENT WILL BE DISCHARGING BACK TO [facility] TO A SENIOR LIVING BED. [facility] SERVED AND EXPLAINED TO PATIENT HE WAS UNABLE TO SIGN AND HE ASKED ME TO CALL HIS MOTHER. I CALLED AND SPOKE WITH JOHANNE (HIS MOTHER) TO LET HER KNOW. HE WILL BE TRANSPORTING VIA EMS DCP- Discharge Planning Updated by [email or web address]: Carisa Ambriz on 07/30/18 1:[address] attempted to see patient to assess discharge planning needs. Patient is unable to answer questions. I also attempted to call Mikael and did not get an answer. Will attempt to call again at a later time. Patient appears to be a total care patient. CM to follow and assist as needed DCP- Discharge Planning Updated by [email or web address]: Milvia Hagen on 07/27/18 3:[address] CM attempted to visit with patient regarding discharge planning/ needs. Patient currently on vent no family available. Patient is a resident at [facility] . Mikael is contact worker lithography at facility [phone] fax [phone]. CM will continue to follow and assist as needed with discharge planning / needs External Providers External Provider: [facility] Next Contact Date: Service Request Date: Service Type: Resolution: Reviewer: Comments: Coverage Notice Reviewer: [email or web address] - Carisa Ambriz Notice Issued Date-Time: 08/02/2018 14:15 Notice Type: IM Discharge Notice Notice Delivered To: Patient Relationship to Patient: Antichecking Iron Worker Name: Delivery Method: HAND - Hand Delivered Camila Days: Prior Verbal Notification: Yes Recipient Understood Notice: Yes Recipient Signature: Med Rec Note Co-signed by Attending: Coverage Notice Comment: Last DP export: 07/30/18 2:06 p Patient Name: ELIZABETH HOLLY Page [id number] at 1435 All edits/amendments must be made on the electronic document DICTATION DATE: 08/02/18 1435 INFORMATION TECHNOLOGY ADVISOR: ESTER 08/02/18 1435 RPT#: [id number] DC DATE: STATUS: ADM IN [facility] [address] [place] [address] END OF REPORT
--- NOTE | 2018-08-02 16:41 | NUR ---
SPOKE WITH ARLENE IYER AT [facility] AND GAVE REPORT.
[2018-08-02 17:59] VITALS: BP 151/86
--- NOTE | 2018-08-02 18:04 | NUR ---
LATE ENTRY 1700. DC CENTRAL LINE WITH TIP IN TACT. OPSITE AND 2X2S PLACED. PT PICKED UP BY AMBULANCE. NO S/S OF ACUTE DISTRESS.
--- NOTE | 2018-08-03 10:33 | MORECARE ---
CASE MANAGEMENT DISCHARGE SUMMARY PATIENT: ELIZABETH HOLLY UNIT: [id number] ADM DATE: 07/26/18 AGE: 68 : 52 SEX: M ROOM/BED: D.2205 AUTHOR: RUDDY,DOC PHYSICIAN: REFERRING PHYSICIAN: NYDIA WILKERSON MD DATE OF SERVICE: 08/03/18 Discharge Plan Patient Name: ELIZABETH HOLLY Facility: [facility]:[place] : 1950 Planned Disposition: Nursing Facility [facility] Cert Anticipated Discharge Date: Discharge Date: 08/02/2018 Expected LOS: 0 Initial Reviewer: [email or web address] Initial Review Date: 07/26/2018 Generated: 08/03/18 11:33 am Comments DCP- Discharge Planning Updated by [id number]: Carisa Ambriz on 08/02/18 1:[address] PATIENT WILL BE DISCHARGING BACK TO [facility] TO A SUPPLY COORDINATOR BED. [facility] SERVED AND EXPLAINED TO PATIENT HE WAS UNABLE TO SIGN AND HE ASKED ME TO CALL HIS MOTHER. I CALLED AND SPOKE WITH JOHANNE (HIS MOTHER) TO LET HER KNOW. HE WILL BE TRANSPORTING VIA EMS DCP- Discharge Planning Updated by [email or web address]: Carisa Ambriz on 07/30/18 1:[address] attempted to see patient to assess discharge planning needs. Patient is unable to answer questions. I also attempted to call Mikael and did not get an answer. Will attempt to call again at a later time. Patient appears to be a total care patient. CM to follow and assist as needed DCP- Discharge Planning Updated by [email or web address]: Milvia Hagen on 07/27/18 3:[address] CM attempted to visit with patient regarding discharge planning/ needs. Patient currently on vent no family available. Patient is a resident at [facility] . Mikael is medicare contact specialist at facility [phone] fax [phone]. CM will continue to follow and assist as needed with discharge planning / needs Coverage Notice Reviewer: [email or web address] - Carisa Ambriz Notice Issued Date-Time: 08/02/2018 14:15 Notice Type: IM Discharge Notice Notice Delivered To: Patient Relationship to Patient: Pharmacy Data Analyst Name: Delivery Method: HAND - Hand Delivered Camila Days: Prior Verbal Notification: Yes Recipient Understood Notice: Yes Recipient Signature: Med Rec Note Co-signed by Attending: Coverage Notice Comment: Last DP export: 08/02/18 1:35 p Patient Name: ELIZABETH HOLLY Page [id number] at 1033 All edits/amendments must be made on the electronic document DICTATION DATE: 08/03/18 1033 AUXILIARY POWER EQUIPMENT OPERATOR: ESTER 08/03/18 1033 RPT#: [id number] DC DATE:08/02/18 STATUS: DIS IN [facility] [address] [place] [address] END OF REPORT
== END 2018-08-02 17:10 | DRG 208 ==
LOC: D.ER 18:35 → D.ICU 19:31 → D.MS 07-29 14:02
PROVIDERS: Emergency Medicine; Family Medicine; ADMIT Legal Medicine; ATTEND Legal Medicine
PROC: 5A1935Z Respiratory Ventilation, Less than 24 Consecutive Hours (ICD-10-PCS; principal; 2018-07-26)
PROC: 0BH17EZ Insertion of Endotracheal Airway into Trachea, Via Natural or Artificial Opening (ICD-10-PCS; 2018-07-26)
DX: J96.01 Acute respiratory failure with hypoxia (principal); A41.9 Sepsis, unspecified organism; R65.21 Severe sepsis with septic shock; J18.9 Pneumonia, unspecified organism; J69.0 Pneumonitis due to inhalation of food and vomit; G93.41 Metabolic encephalopathy; I69.951 Hemiplegia and hemiparesis following unspecified cerebrovascular disease affecting right dominant side; D72.829 Elevated white blood cell count, unspecified; I10 Essential (primary) hypertension; K21.9 Gastro-esophageal reflux disease without esophagitis; G80.9 Cerebral palsy, unspecified; R53.81 Other malaise